=== PATIENT | female | born 1985 | race American Indian/Alaskan Native ===

== ENCOUNTER 2020-01-31 14:19 | Inpatient (IN) | payer OTHER, SELFPAY ==
--- NOTE | 2020-01-31 16:06 | Emergency Department Report ---
HPI - HPI HPI: Room 10 The patient is a 34-year-old female present with a chief complaint of nausea vomiting and weakness. The patient states she went to sleep in her usual state of health last night and this morning at 04: 00 she began "shaking uncontrollably." The patient states that lasted for approximately 1 hour and then resolved but she continued to feel weak dizzy and had nausea and vomiting. The patient states that 07: 30 the shaking return prompted her to come to the hospital. The patient states she now just feels lightheaded and weak. Patient denies dysuria or hematuria. Patient denies diarrhea or cough. Patient denies contact with known Covid positive patients. Patient admits to a fever <DAYNA MUELLER - Last Filed: 01/31/20 20:00> <JAYNE TAFOYA - Last Filed: 01/31/20 23:03> - General Chief Complaint: Nausea/Vomiting/Diarrhea Time Seen by Provider: 01/31/20 15:10 ED Past Medical Hx - Past Medical History Previous Medical History?: Yes Hx Diabetes: Yes Additional medical history: Chronic back pain - Surgical History Past Surgical History?: Yes Additional Surgical History: Bilateral foot surgery - Family History Family history: no significant - Social History Smoking Status: Never Smoker Substance Use Type: None (Denies illicit drug use), Alcohol (Occasional) <DAYNA MUELLER - Last Filed: 01/31/20 20:00> <JAYNE TAFOYA - Last Filed: 01/31/20 23:03> - Medications Home Medications: Home Medications Medication Instructions Recorded Confirmed Last Taken Type Ciprofloxacin HCl [Ciprofloxacin 500 mg PO Q12HR #20 tab 01/31/20 Unknown Rx TAB] Promethazine [Phenergan] 25 mg PO Q6HR PRN #20 tab 01/31/20 Unknown Rx Promethazine [Phenergan] 25 mg [place] Q6HR PRN #5 supp.rect 01/31/20 Unknown Rx ED Review of Systems ROS: Stated complaint: N/V, HEADACHE Other details as noted in HPI Constitutional: fever Eyes: denies: eye pain ENT: denies: throat pain Respiratory: denies: cough Cardiovascular: denies: chest pain Endocrine: no symptoms reported Gastrointestinal: nausea, vomiting. denies: abdominal pain, diarrhea Genitourinary: denies: dysuria, hematuria Musculoskeletal: denies: back pain Neurological: other (Lightheadedness) <DAYNA MUELLER - Last Filed: 01/31/20 20:00> ROS: Stated complaint: N/V, HEADACHE Other details as noted in HPI <JAYNE TAFOYA - Last Filed: 01/31/20 23:03> Physical Exam - Physical Exam Vital Signs: Vital Signs 01/31/20 15:31 Temperature 99.4 F Pulse Rate 133 H Respiratory 11 L Rate Blood Pressure 106/54 O2 Sat by Pulse 97 Oximetry Physical Exam: GENERAL: The patient is well-developed well-nourished female lying on stretcher using cell phone not appearing to be in acute distress. [] HEENT: Normocephalic. Atraumatic. Extraocular motions are intact. Patient has moist mucous membranes. NECK: Supple. No meningitic signs are noted. No nuchal rigidity CHEST/LUNGS: Clear to auscultation. There is no respiratory distress noted. HEART/CARDIOVASCULAR: Regular. There is tachycardia. There is no gallop rub or murmur. ABDOMEN: Abdomen is soft, nontender. Patient has normal bowel sounds. There is no abdominal distention. SKIN: There is no rash. There is no edema. There is no diaphoresis. NEURO: The patient is awake, alert, and oriented. The patient is cooperative. The patient has no focal neurologic deficits. The patient has normal speech. Cranial nerves II through XII grossly intact MUSCULOSKELETAL: There is no evidence of acute injury. <TODD MUELLERKE Emmanuel - Last Filed: 01/31/20 20:00> - Physical Exam Vital Signs: Vital Signs 01/31/20 01/31/20 01/31/20 15:30 15:31 15:45 Temperature 99.4 F Pulse Rate 140 H 133 H 130 H Respiratory 20 11 L 14 Rate Blood Pressure 105/64 106/54 105/71 Blood Pressure [Left] O2 Sat by Pulse 97 97 93 Oximetry 01/31/20 01/31/20 01/31/20 16:16 16:30 16:46 Temperature Pulse Rate 128 H 132 H 124 H Respiratory 19 22 18 Rate Blood Pressure 99/53 99/53 99/53 Blood Pressure [Left] O2 Sat by Pulse 96 96 98 Oximetry 01/31/20 01/31/20 01/31/20 17:00 17:16 17:30 Temperature Pulse Rate 125 H 124 H 118 H Respiratory 17 29 H 20 Rate Blood Pressure 99/53 99/53 94/53 Blood Pressure [Left] O2 Sat by Pulse 98 97 96 Oximetry 01/31/20 01/31/20 01/31/20 17:46 18:00 18:16 Temperature Pulse Rate 120 H 114 H 114 H Respiratory 18 20 20 Rate Blood Pressure 94/53 94/43 94/43 Blood Pressure [Left] O2 Sat by Pulse 97 94 94 Oximetry 01/31/20 01/31/20 01/31/20 18:30 18:46 19:40 Temperature 98.0 F Pulse Rate 114 H 115 H 109 H Respiratory 18 16 16 Rate Blood Pressure 94/43 91/49 Blood Pressure 105/68 [Left] O2 Sat by Pulse 94 97 96 Oximetry 01/31/20 01/31/20 01/31/20 19:46 20:00 20:16 Temperature Pulse Rate 107 H 108 H 106 H Respiratory 17 12 15 Rate Blood Pressure 105/68 103/50 107/50 Blood Pressure [Left] O2 Sat by Pulse 94 95 94 Oximetry 01/31/20 01/31/20 01/31/20 20:30 20:45 21:00 Temperature Pulse Rate 108 H 108 H 108 H Respiratory 18 19 20 Rate Blood Pressure 104/50 107/42 107/53 Blood Pressure [Left] O2 Sat by Pulse 95 95 97 Oximetry 01/31/20 01/31/20 21:38 22:30 Temperature Pulse Rate 155 H Respiratory 27 H Rate Blood Pressure 107/53 107/53 Blood Pressure [Left] O2 Sat by Pulse 99 95 Oximetry <JAYNE TAFOYA - Last Filed: 01/31/20 23:03> ED Course Vital Signs 01/31/20 15:31 Temperature 99.4 F Pulse Rate 133 H Respiratory 11 L Rate Blood Pressure 106/54 O2 Sat by Pulse 97 Oximetry <DAYNA MUELLER - Last Filed: 01/31/20 20:00> Vital Signs 01/31/20 01/31/20 01/31/20 15:30 15:31 15:45 Temperature 99.4 F Pulse Rate 140 H 133 H 130 H Respiratory 20 11 L 14 Rate Blood Pressure 105/64 106/54 105/71 Blood Pressure [Left] O2 Sat by Pulse 97 97 93 Oximetry 01/31/20 01/31/2001/30/20 16:16 16:30 16:46 Temperature Pulse Rate 128 H 132 H 124 H Respiratory 19 22 18 Rate Blood Pressure 99/53 99/53 99/53 Blood Pressure [Left] O2 Sat by Pulse 96 96 98 Oximetry 01/31/20 01/31/20 01/31/20 17:00 17:16 17:30 Temperature Pulse Rate 125 H 124 H 118 H Respiratory 17 29 H 20 Rate Blood Pressure 99/53 99/53 94/53 Blood Pressure [Left] O2 Sat by Pulse 98 97 96 Oximetry 01/31/20 01/31/20 01/31/20 17:46 18:00 18:16 Temperature Pulse Rate 120 H 114 H 114 H Respiratory 18 20 20 Rate Blood Pressure 94/53 94/43 94/43 Blood Pressure [Left] O2 Sat by Pulse 97 94 94 Oximetry 01/31/20 01/31/20 01/31/20 18:30 18:46 19:40 Temperature 98.0 F Pulse Rate 114 H 115 H 109 H Respiratory 18 16 16 Rate Blood Pressure 94/43 91/49 Blood Pressure 105/68 [Left] O2 Sat by Pulse 94 97 96 Oximetry 01/31/20 01/31/20 01/31/20 19:46 20:00 20:16 Temperature Pulse Rate 107 H 108 H 106 H Respiratory 17 12 15 Rate Blood Pressure 105/68 103/50 107/50 Blood Pressure [Left] O2 Sat by Pulse 94 95 94 Oximetry 01/31/20 01/31/20 01/31/20 20:30 20:45 21:00 Temperature Pulse Rate 108 H 108 H 108 H Respiratory 18 19 20 Rate Blood Pressure 104/50 107/42 107/53 Blood Pressure [Left] O2 Sat by Pulse 95 95 97 Oximetry 01/31/20 01/31/20 21:38 22:30 Temperature Pulse Rate 155 H Respiratory 27 H Rate Blood Pressure 107/53 107/53 Blood Pressure [Left] O2 Sat by Pulse 99 95 Oximetry <JAYNE TAFOYA - Last Filed: 01/31/20 23:03> ED Medical Decision Making - Lab Data Result diagrams: 01/31/20 16:20 01/31/20 16:20 <DAYNA MUELLER - Last Filed: 01/31/20 20:00> - Lab Data Result diagrams: 01/31/20 16:20 01/31/20 16:20 - Radiology Data Radiology results: report reviewed CT chest abdomen pelvis: No significant or definite acute findings in the chest abdomen pelvis according to radiology impression. - Medical Decision Making This is a 34-year-old female with history of diabetes mellitus, severe obesity who presents with severe chills, subjective fever nausea vomiting. She has generalized malaise. With persistent tachycardia and hypotension I am concerned for septic shock. Patient did have contaminated urinalysis. She is currently menstruating. However there is nitrites and significant WBCs concerning for possible pyelonephritis. No other significant source of infection. Patient is admitted to the hospital service in fair condition. <JAYNE TAFOYA - Last Filed: 01/31/20 23:03> Critical care attestation.: If time is entered above; I have spent that time in minutes in the direct care of this critically ill patient, excluding procedure time. <DAYNA MUELLER - Last Filed: 01/31/20 20:00> Critical Care Time: Yes Critical care time in (mins) excluding proc time.: 40 Critical care attestation.: If time is entered above; I have spent that time in minutes in the direct care of this critically ill patient, excluding procedure time. 40 minutes of critical care time excluding procedures were used in the care of the patient. I came immediately to the bedside after receiving patient report from my colleague. I reviewed electronic record. Patient required multiple interventions and reassessments. <JAYNE TAFOYA - Last Filed: 01/31/20 23:03> ED Disposition <DAYNA MUELLER - Last Filed: 01/31/20 20:00> Is pt being admited?: Yes Does the pt Need Aspirin: No <JAYNE TAFOYA - Last Filed: 01/31/20 23:03> Clinical Impression: Pyelonephritis, Sepsis Disposition: DC-09 OP ADMIT IP TO THIS HOSP Condition: Fair Instructions: Pyelonephritis, Adult Additional Instructions: Return to the emergency department should you develop worsening symptoms, in ability to tolerate food or liquids, high fever or any other concerns Prescriptions: Ciprofloxacin HCl [Ciprofloxacin TAB] 500 mg PO Q12HR #20 tab Promethazine [Phenergan] 25 mg PO Q6HR PRN #20 tab PRN Reason: Nausea Promethazine [Phenergan] 25 mg [place] Q6HR PRN #5 supp.rect PRN Reason: Vomiting
[2020-01-31] MEDS ORDERED: ONDANSETRON 4 MG/2 ML INJ IV ONE (16:10)
[2020-01-31] MEDS ORDERED: SODIUM CHLORIDE 0.9% 1000 ML 1,000 ML IV ONE ×3 (16:10→18:36)
[2020-01-31 16:38] LABS: Basophils % (Auto) 0.1 % (0.0-1.8); Hematocrit 37.5 % (30.3-42.9); Hemoglobin 11.5 gm/dl (10.1-14.3); Lymphocytes # (Auto) 0.9 K/mm3 (1.2-5.4); Lymphocytes % (Auto) 5.2 % (13.4-35.0); Mean Corpuscular HGB Conc 31 % (30-34); Mean Corpuscular Volume 81 fl (79-97); Monocytes % (Auto) 5.9 % (0.0-7.3); Platelet Count 259 K/mm3 (140-440); Red Blood Count 4.64 M/mm3 (3.65-5.03); Red Cell Distribution Width 15.2 % (13.2-15.2)
[2020-01-31 16:59] LABS: Albumin 3.1 g/dL (3.9-5); Calcium 8.9 mg/dL (8.4-10.2)
[2020-01-31] MEDS ORDERED: levoFLOXacin 500 MG TAB PO ONE (19:34)
[2020-01-31 19:41] LABS: Bilirubin,Urine NEG (Negative); Blood,Urine MOD (Negative); Color,Urine Red (Yellow); Urobilinogen,Urine < 2.0 mg/dL (<2.0)
[2020-01-31 19:53] LABS: RBC,Urine > 182.0 /HPF (0.0-6.0); WBC,Urine > 182.0 /HPF (0.0-6.0)
[2020-01-31] MEDS ORDERED: INSULIN REGULAR, HUMAN 100 UNIT/ML 3ML VIAL IV ONE (20:08)
[2020-01-31] MEDS ORDERED: INSULIN REGULAR, HUMAN 100 UNITS/1 ML ONE (20:30)
[2020-01-31] MEDS ORDERED: VANCOMYCIN/NS 1 GM/250 ML 1 GM/250 ML BAG IV ONE (22:04)
[2020-01-31] MEDS ORDERED: PIPERACIL/TAZOBACTA 4.5/NS 100 4.5 GM/100 ML VIAL IV ONE (22:04)
[2020-01-31] MEDS ORDERED: VANCOMYCIN 2,000 MG in SODIUM CHLORIDE 0.9% 500 ML 500 ML IV ONE (22:15)
--- NOTE | 2020-01-31 22:15 | Cat Scan Report ---
CT abdomen pelvis wo con, CT chest wo con INDICATION / CLINICAL INFORMATION: SIRS chills. TECHNIQUE: All CT scans at this location are performed using CT dose reduction for ALARA by means of automated e xposure control. COMPARISON: None available. FINDINGS: No significant parenchymal abnormality is seen in the lungs. No enlarged mediastinal or hilar lymph n odes are identified. No significant skeletal abnormality is seen. In the abdomen, significant artifact is present due to the patient's size. Grossly, the liver, spleen , kidneys, pancreas, adrenal glands and great vessels are normal. In the pelvis, no free fluid is seen. No enlarged lymph nodes are identified. The bladder is normal. No significant skeletal abnormality is seen. IMPRESSION: 1. Significant artifact due to patient's size. 2. No definite acute finding in the chest, abdomen or pelvis Signer Name: Isaiah Talbot MD FACR Signed: 01/31/2020 10:11 PM Workstation Name: [id number]
[2020-01-31] MEDS ORDERED: SODIUM CHLORIDE 0.9% 1000 ML IV SOLN IV ONE (23:05)
[2020-02-01] MEDS ORDERED: SODIUM CHLORIDE 0.9% 1000 ML 1,000 ML ONE ×3 (02:53→06:01)
[2020-02-01] MEDS ORDERED: SODIUM CHLORIDE 0.9% 1000 ML 1,000 ML IV ONE ×2 (03:05→05:24)
[2020-02-01] MEDS ORDERED: LIDOCAINE PF 100 MG/5 ML (CARDIAC SYRINGE) IV ONE ×4 (04:59→05:15)
[2020-02-01] MEDS ORDERED: NORepinephrine/NS 4 MG-250 ML 4 MG/250 ML BAG IV ONE (05:27)
--- NOTE | 2020-02-01 05:34 | History and Physical Report ---
History of Present Illness Date of examination: 01/31/20 Date of admission: 02/01/20 04:28 Chief complaint: Nausea vomiting and weakness for 1 day History of present illness: 34-year-old female, morbidly obese with history of diabetes comes in for nausea vomiting and diarrhea since yesterday. Patient began shaking uncontrollably. Patient describes them as chills. This happened at 4 AM. She had chills again after 7:30 AM. Patient denies any diarrhea or cough. Some dysuria present. Patient denies contact with coronavirus patients. Patient has slight shortness of breath. Patient is morbidly obese and patient has possible obstructive sleep apnea also. Fever in the triage area. Blood pressure was on the lower side in the 90s over 60s - Past Medical History Previous Medical History?: Yes --Diabetes: Yes Additional medical history: Chronic back pain - Surgical History Past Surgical History?: Yes Additional Surgical History: Bilateral foot surgery - Family History Family history: no significant - Social History Smoking Status: Never Smoker Substance Use Type: None (Denies illicit drug use), Alcohol (Occasional) - Medications Home Medications: Home Medications Medication Instructions Recorded Confirmed Last Taken Type Ciprofloxacin HCl [Ciprofloxacin 500 mg PO Q12HR #20 tab 01/31/20 Unknown Rx TAB] Promethazine [Phenergan] 25 mg PO Q6HR PRN #20 tab 01/31/20 Unknown Rx Promethazine [Phenergan] 25 mg [place] Q6HR PRN #5 supp.rect 01/31/20 Unknown Rx Review of Systems ROS: Stated complaint: N/V, HEADACHE Other details as noted in HPI Constitutional: fever Eyes: denies: eye pain ENT: denies: throat pain Respiratory: denies: cough Cardiovascular: denies: chest pain Endocrine: no symptoms reported Gastrointestinal: nausea, vomiting. denies: abdominal pain, diarrhea Genitourinary: denies: dysuria, hematuria Musculoskeletal: denies: back pain Neurological: other (Lightheadedness) Medications and Allergies Allergies Allergy/AdvReac Type Severity Reaction Status Date / Time No Known Allergies Allergy Verified 01/31/20 22:06 Home Medications Medication Instructions Recorded Confirmed Last Taken Type Ciprofloxacin HCl [Ciprofloxacin 500 mg PO Q12HR #20 tab 01/31/20 Unknown Rx TAB] Promethazine [Phenergan] 25 mg PO Q6HR PRN #20 tab 01/31/20 Unknown Rx Promethazine [Phenergan] 25 mg [place] Q6HR PRN #5 supp.rect 01/31/20 Unknown Rx Active Meds: Active Medications Norepinephrine (Levophed Drip 4 Mg/Ns 250 Ml) 4 mg in 250 mls @ 7.5 mls/hr IV TITR DAYANA; Protocol Sodium Chloride (Nacl 0.9% 1000 Ml) 1,000 mls @ 999 mls/hr IV BOLUS ONE Stop: 02/01/20 06:24 Exam - Physical Exam Narrative exam: Morbidly obese patient weighing about 356 pounds - Constitutional Vitals: Temp Pulse Resp BP Pulse Ox 98.0 F 115 H 17 98/41 97 01/31/20 19:40 02/01/20 05:15 02/01/20 05:15 02/01/20 05:15 02/01/20 05:15 General appearance: Present: mild distress - EENT Eyes: Present: PERRL ENT: hearing intact, clear oral mucosa - Neck Neck: Present: supple, normal ROM - Respiratory Respiratory effort: normal Respiratory: bilateral: CTA - Cardiovascular Heart rate: 98 Rhythm: regular Heart Sounds: Present: S1 & S2. Absent: rub, click - Extremities Extremities: no ischemia, pulses intact, pulses symmetrical, No edema Peripheral Pulses: within normal limits - Abdominal General gastrointestinal: Present: soft, non-tender, non-distended, normal bowel sounds Female genitourinary: Present: normal - Integumentary Integumentary: Present: clear, warm, dry - Musculoskeletal Musculoskeletal: gait normal, strength equal bilaterally - Psychiatric Psychiatric: appropriate mood/affect, intact judgment & insight, cooperative - Neurologic Neurologic: CNII-XII intact, moves all extremities HEART Score - HEART Score History: Slightly suspicious Age: < 45 Risk factors: 1-2 risk factors Troponin: < normal limit Results - Labs CBC & Chem 7: 02/01/20 05:44 01/31/20 16:20 Labs: Laboratory Last Values WBC 16.7 K/mm3 (4.5-11.0) H 01/31/20 16:20 RBC 4.64 M/mm3 (3.65-5.03) 01/31/20 16:20 Hgb 11.5 gm/dl (10.1-14.3) 01/31/20 16:20 Hct 37.5 % (30.3-42.9) 01/31/20 16:20 MCV 81 fl (79-97) 01/31/20 16:20 MCH 25 pg (28-32) L 01/31/20 16:20 MCHC 31 % (30-34) 01/31/20 16:20 RDW 15.2 % (13.2-15.2) 01/31/20 16:20 Plt Count 259 K/mm3 (140-440) 01/31/20 16:20 Lymph % (Auto) 5.2 % (13.4-35.0) L 01/31/20 16:20 [place] % (Auto) 5.9 % (0.0-7.3) 01/31/20 16:20 Eos % (Auto) 0.0 % (0.0-4.3) 01/31/20 16:20 Baso % (Auto) 0.1 % (0.0-1.8) 01/31/20 16:20 Lymph # (Auto) 0.9 K/mm3 (1.2-5.4) L 01/31/20 16:20 [place] # (Auto) 1.0 K/mm3 (0.0-0.8) H 01/31/20 16:20 Eos # (Auto) 0.0 K/mm3 (0.0-0.4) 01/31/20 16:20 Baso # (Auto) 0.0 K/mm3 (0.0-0.1) 01/31/20 16:20 Seg Neutrophils % 88.8 % (40.0-70.0) H 01/31/20 16:20 Seg Neutrophils # 14.8 K/mm3 (1.8-7.7) H 01/31/20 16:20 VBG pH 7.376 (7.320-7.420) 01/31/20 17:48 Sodium 131 mmol/L (137-145) L 01/31/20 16:20 Potassium 4.0 mmol/L (3.6-5.0) 01/31/20 16:20 Chloride 100.3 mmol/L (98-107) 01/31/20 16:20 Carbon Dioxide 18 mmol/L (22-30) L 01/31/20 16:20 Anion Gap 17 mmol/L 01/31/20 16:20 BUN 15 mg/dL (7-17) 01/31/20 16:20 Creatinine 1.1 mg/dL (0.6-1.2) 01/31/20 16:20 Estimated GFR 56 ml/min 01/31/20 16:20 BUN/Creatinine Ratio 14 % 01/31/20 16:20 Glucose 408 mg/dL (65-100) H 01/31/20 16:20 POC Glucose 269 mg/dL (70-105) H 01/31/20 22:44 Lactic Acid 2.20 mmol/L (0.7-2.0) H* 02/01/20 02:16 Calcium 8.9 mg/dL (8.4-10.2) 01/31/20 16:20 Total Bilirubin 0.60 mg/dL (0.1-1.2) 01/31/20 16:20 AST 12 units/L (5-40) 01/31/20 16:20 ALT 19 units/L (7-56) 01/31/20 16:20 Alkaline Phosphatase 88 units/L (35-129) 01/31/20 16:20 Total Protein 7.5 g/dL (6.3-8.2) 01/31/20 16:20 Albumin 3.1 g/dL (3.9-5) L 01/31/20 16:20 Albumin/Globulin Ratio 0.7 % 01/31/20 16:20 HCG, Qual Negative (Negative) 01/31/20 16:20 Urine Color Red (Yellow) 01/31/20 19:00 Urine Turbidity Cloudy (Clear) 01/31/20 19:00 Urine pH 6.0 (5.0-7.0) 01/31/20 19:00 Ur Specific [place] 1.027 (1.003-1.030) 01/31/20 19:00 Urine Protein 100 mg/dl mg/dL (Negative) 01/31/20 19:00 Urine Glucose (UA) >=500 mg/dL (Negative) 01/31/20 19:00 Urine Ketones Tr mg/dL (Negative) 01/31/20 19:00 Urine Blood Mod (Negative) 01/31/20 19:00 Urine Nitrite Pos (Negative) 01/31/20 19:00 Urine Bilirubin Neg (Negative) 01/31/20 19:00 Urine Urobilinogen < 2.0 mg/dL (<2.0) 01/31/20 19:00 Ur Leukocyte Esterase Neg (Negative) 01/31/20 19:00 Urine WBC (Auto) > 182.0 /HPF (0.0-6.0) H 01/31/20 19:00 Urine RBC (Auto) > 182.0 /HPF (0.0-6.0) 01/31/20 19:00 U Epithel Cells (Auto) 6.0 /HPF (0-13.0) 01/31/20 19:00 Short CBC 01/31/20 02/01/20 Range/Units 16:20 05:44 WBC 16.7 H 20.2 H (4.5-11.0) K/mm3 Hgb 11.5 10.0 L (10.1-14.3) gm/dl Hct 37.5 31.9 (30.3-42.9) % Plt Count 259 207 (140-440) K/mm3 BMP 01/31/20 16:20 Sodium 131 L Potassium 4.0 Chloride 100.3 Carbon Dioxide 18 L BUN 15 Creatinine 1.1 Glucose 408 H Calcium 8.9 Liver Function 01/31/20 Range/Units 16:20 Total Bilirubin 0.60 (0.1-1.2) mg/dL AST 12 (5-40) units/L ALT 19 (7-56) units/L Alkaline Phosphatase 88 (35-129) units/L Albumin 3.1 L (3.9-5) g/dL Urine 01/31/20 Range/Units 19:00 Urine Color Red (Yellow) Urine pH 6.0 (5.0-7.0) Ur Specific [place] 1.027 (1.003-1.030) Urine Protein 100 mg/dl (Negative) mg/dL Urine Glucose (UA) >=500 (Negative) mg/dL Microbiology: Microbiology 01/31/20 16:29 Peripheral/Venous Blood Culture - Preliminary Culture in Progress 01/31/20 16:20 Peripheral/Venous Blood Culture - Preliminary Culture in Progress - Imaging and Cardiology Imaging and Cardiology: Abdominal CT Significant artifact due to patient size No definite acute finding in the chest abdomen or pelvis Arce/IV: IV Catheter Type [Right INT / Saline Lock Forearm] IV Catheter Type [Left Hand] INT / Saline Lock Assessment and Plan Assessment and plan: The high probability OF a clinically significant sudden or life-threatening deterioration of the cardiorespiratory system and endocrine system required my full and direct attention, intervention and postoperative management. The aggregate critical l care time was 40 minutes. The time is in addition to time spent performing reported procedures but includes the followin: Data review and interpretation 2: Patient assessment and monitoring of vital signs 3: Documentation 4:: Medication orders and management Advance Directives: Yes (Full code) VTE prophylaxis?: Chemical Plan of care discussed with patient/family: Yes - Patient Problems (1) Septic shock Current Visit: Yes Status: Acute Plan to address problem: Patient is septic shock Elevated lactic acid level Hypotensive with blood pressure of 8860 Patient started on IV cefepime and IV vancomycin empirically. Patient has 182 white blood cells in the urine Urine cultures and blood cultures are pending (2) Pyelonephritis Current Visit: Yes Status: Acute Plan to address problem: Clinical picture consistent with acute pyelonephritis Patient started on IV cefepime and vancomycin (3) Hypotension Current Visit: Yes Status: Acute Plan to address problem: Hypotension secondary to septic shock Patient on IV normal saline and IV norepinephrine to be titrated to keep systolic blood pressure above 100 (4) T2DM (type 2 diabetes mellitus) Current Visit: Yes Status: Chronic Qualifiers: Diabetes mellitus meterman insulin use: unspecified meterman insulin use status Plan to address problem: Patient initiated on insulin every 4 hours with moderate dose sliding scale protocol Check hemoglobin A1c (5) Hyponatremia Current Visit: Yes Status: Acute Plan to address problem: Mild should correct with IV normal saline (6) Malnutrition Current Visit: Yes Status: Acute Qualifiers: Malnutrition type: unspecified type Qualified Code(s): E46 - Unspecified protein-calorie malnutrition Plan to address problem: Mild to moderate Dietary supplements requested (7) DVT prophylaxis Current Visit: Yes Status: Acute
[2020-02-01] MEDS ORDERED: HYDROmorphone 1 MG/1 ML INJ IV PRN (05:35)
[2020-02-01] MEDS ORDERED: CEFEPIME/NS 2 GM/100 ML 2 GM/100 ML BAG IV SCH (06:00)
[2020-02-01] MEDS ORDERED: INSULIN LISPRO 100 UNIT/ML VIAL 3 mL SUB-Q ONE ×2 (06:00→06:08)
[2020-02-01] MEDS ORDERED: VANCOMYCIN PHARMACY TO DOSE IV SCH (06:00)
[2020-02-01] MEDS ORDERED: NORepinephrine/NS 4 MG-250 ML 4 MG/250 ML BAG IV SCH (06:00)
[2020-02-01] MEDS ORDERED: CEFEPIME/NS 2 GM/100 ML 2 GM/100 ML BAG IV ONE (06:01)
[2020-02-01] MEDS: INSULIN LISPRO 100 UNIT/ML VIAL 3 mL SUB-Q SCH ×5 (06:11→21:49)
[2020-02-01] MEDS: SODIUM CHLORIDE 0.9% 1000 ML 1,000 ML IV SCH ×2 (06:20→18:36)
[2020-02-01 06:24] LABS: Hematocrit 31.9 % (30.3-42.9); Mean Corpuscular HGB Conc 31 % (30-34); Mean Corpuscular Volume 81 fl (79-97); Platelet Count 207 K/mm3 (140-440); Red Blood Count 3.93 M/mm3 (3.65-5.03); Red Cell Distribution Width 14.8 % (13.2-15.2)
[2020-02-01 06:52] LABS: Albumin 2.4 g/dL (3.9-5); Calcium 6.9 mg/dL (8.4-10.2)
[2020-02-01 07:46] LABS: Anisocytosis 1+; Band Neutrophils # (Manual) 0.8 K/mm3; Basophils % (Manual) 0 % (0.0-1.8); Eosinophils % (Manual) 0 % (0.0-4.3); Nucleated Red Blood Cells 0.5 % (0.0-0.9); Platelet Estimate Consistent w Auto; Total Cells Counted 200
[2020-02-01] MEDS ORDERED: LACTATED RINGERS 1,000 ML IV ONE ×2 (08:29)
--- NOTE | 2020-02-01 08:36 | Consultation ---
History of Present Illness - Reason for Consult Consult date: 02/01/20 Sepsis with shock from urinary source Requesting physician: BELINDA LYONS - History of Present Illness 34 y/o, morbidly obese female admitted with fever and shaking chills that started early yesterday morning. Was mildly hypotensive in the ED. Despite fluid resuscitation, remained hypotensive and required vasopressor therapy. Currently on Levophed at 2. Per patient does not use tampons. No diffuse rashes and no sick contacts. UA was dirty and gram stain has GNR but not speciated. sTarted on Vanc and Cefepime. ICU consulted secondary to hypotension. Patients blood sugar was elevated on admission as well. She also had a metabolic acidosis with lactic acid present on blood work which seems to be improving. Medications and Allergies Allergies Allergy/AdvReac Type Severity Reaction Status Date / Time No Known Allergies Allergy Verified 01/31/20 22:06 Home Medications Medication Instructions Recorded Confirmed Last Taken Type Ciprofloxacin HCl [Ciprofloxacin 500 mg PO Q12HR #20 tab 01/31/20 Unknown Rx TAB] Promethazine [Phenergan] 25 mg PO Q6HR PRN #20 tab 01/31/20 Unknown Rx Promethazine [Phenergan] 25 mg OR Q6HR PRN #5 supp.rect 01/31/20 Unknown Rx Naproxen [EC-Naproxen] 500 mg PO BID PRN 02/01/20 02/01/20 Unknown History glyBURIDE [Glyburide] 7.5 mg PO BID 02/01/20 02/01/20 01/31/20 History Active Meds: Active Medications Acetaminophen (Tylenol) 650 mg PO Q4H PRN PRN Reason: Pain MILD(1-3)/Fever >100.5/LOVE Famotidine (Pepcid) 20 mg IV BID [facility] Heparin Sodium (Porcine) (Heparin) 5,000 unit SUB-Q Q12HR [facility] Hydromorphone HCl (Dilaudid) 0.25 mg IV Q3H PRN PRN Reason: Pain, Moderate (4-6) Norepinephrine (Levophed Drip 4 Mg/Ns 250 Ml) 4 mg in 250 mls @ 7.5 mls/hr IV TITR [facility]; Protocol Last Titration: 02/01/20 06:40 Dose: 6 mcg/min, 22.5 mls/hr Documented by: Sodium Chloride (Nacl 0.9% 1000 Ml) 1,000 mls @ 100 mls/hr IV DIRECT [facility] Last Admin: 02/01/20 06:20 Dose: 100 mls/hr Documented by: Cefepime HCl (Cefepime/Ns 2 Gm/100 Ml) 2 gm in 100 mls @ 200 mls/hr IV Q8HR [facility]; Protocol Last Admin: 02/01/20 06:11 Dose: 200 mls/hr Documented by: Vancomycin HCl 2,000 mg/ (Sodium Chloride) 540 mls @ 250 mls/hr IV Q12H [facility] Lactated Ringer's (Lactated Ringers) 1,000 mls @ 999 mls/hr IV BOLUS ONE Stop: 02/01/20 09:29 Lactated Ringer's (Lactated Ringers) 1,000 mls @ 999 mls/hr IV BOLUS ONE Stop: 02/01/20 09:29 Insulin Human Lispro (Humalog) 0 unit SUB-Q Q4HR [facility]; Protocol Last Admin: 02/01/20 06:11 Dose: 6 unit Documented by: Ondansetron HCl (Zofran) 4 mg IV Q8H PRN PRN Reason: Nausea And Vomiting Oxycodone/Acetaminophen (Percocet 5/325) 1 tab PO Q6H PRN PRN Reason: Pain, Moderate (4-6) Sodium Chloride (Sodium Chloride Flush Syringe 10 Ml) 10 ml IV BID [facility] Sodium Chloride (Sodium Chloride Flush Syringe 10 Ml) 10 ml IV PRN PRN PRN Reason: LINE FLUSH Exam - Constitutional Vitals: Temp Pulse Resp BP Pulse Ox 98.1 F 113 H 17 132/76 98 01/31/20 23:00 02/01/20 07:30 02/01/20 07:30 02/01/20 07:30 02/01/20 07:30 General appearance: Present: no acute distress, well-nourished, obese - EENT Eyes: Present: PERRL, EOM intact ENT: hearing intact, clear oral mucosa, dentition normal - Neck Neck: Present: supple, normal ROM - Respiratory Respiratory effort: normal Respiratory: bilateral: CTA - Cardiovascular Rhythm: regular (sinus tach) Results - Labs CBC & Chem 7: 02/02/20 07:01 02/02/20 07:01 Labs: Abnormal lab results 01/31/20 01/31/20 01/31/20 Range/Units 16:20 16:20 19:00 WBC 16.7 H (4.5-11.0) K/mm3 Hgb (10.1-14.3) gm/dl MCH 25 L (28-32) pg Lymph % (Auto) 5.2 L (13.4-35.0) % Lymph # (Auto) 0.9 L (1.2-5.4) K/mm3 [place] # (Auto) 1.0 H (0.0-0.8) K/mm3 Seg Neutrophils % 88.8 H (40.0-70.0) % Seg Neuts % (Manual) (40.0-70.0) % Lymphocytes % (Manual) (13.4-35.0) % Seg Neutrophils # 14.8 H (1.8-7.7) K/mm3 Seg Neutrophils # Man (1.8-7.7) K/mm3 Lymphocytes # (Manual) (1.2-5.4) K/mm3 Sodium 131 L (137-145) mmol/L Chloride (98-107) mmol/L Carbon Dioxide 18 L (22-30) mmol/L Creatinine (0.6-1.2) mg/dL Glucose 408 H (65-100) mg/dL POC Glucose (70-105) mg/dL Hemoglobin A1c (4-6) % Lactic Acid (0.7-2.0) mmol/L Calcium (8.4-10.2) mg/dL Total Protein (6.3-8.2) g/dL Albumin 3.1 L (3.9-5) g/dL Urine WBC (Auto) > 182.0 H (0.0-6.0) /HPF 01/31/20 01/31/20 01/31/20 Range/Units 20:24 22:44 23:33 WBC (4.5-11.0) K/mm3 Hgb (10.1-14.3) gm/dl MCH (28-32) pg Lymph % (Auto) (13.4-35.0) % Lymph # (Auto) (1.2-5.4) K/mm3 [place] # (Auto) (0.0-0.8) K/mm3 Seg Neutrophils % (40.0-70.0) % Seg Neuts % (Manual) (40.0-70.0) % Lymphocytes % (Manual) (13.4-35.0) % Seg Neutrophils # (1.8-7.7) K/mm3 Seg Neutrophils # Man (1.8-7.7) K/mm3 Lymphocytes # (Manual) (1.2-5.4) K/mm3 Sodium (137-145) mmol/L Chloride (98-107) mmol/L Carbon Dioxide (22-30) mmol/L Creatinine (0.6-1.2) mg/dL Glucose (65-100) mg/dL POC Glucose 429 H 269 H (70-105) mg/dL Hemoglobin A1c (4-6) % Lactic Acid 3.50 H* (0.7-2.0) mmol/L Calcium (8.4-10.2) mg/dL Total Protein (6.3-8.2) g/dL Albumin (3.9-5) g/dL Urine WBC (Auto) (0.0-6.0) /HPF 02/01/20 02/01/20 02/01/20 Range/Units 02:16 05:44 05:44 WBC 20.2 H (4.5-11.0) K/mm3 Hgb 10.0 L (10.1-14.3) gm/dl MCH 25 L (28-32) pg Lymph % (Auto) (13.4-35.0) % Lymph # (Auto) (1.2-5.4) K/mm3 [place] # (Auto) (0.0-0.8) K/mm3 Seg Neutrophils % (40.0-70.0) % Seg Neuts % (Manual) 93.5 H (40.0-70.0) % Lymphocytes % (Manual) 0.5 L (13.4-35.0) % Seg Neutrophils # (1.8-7.7) K/mm3 Seg Neutrophils # Man 18.9 H (1.8-7.7) K/mm3 Lymphocytes # (Manual) 0.1 L (1.2-5.4) K/mm3 Sodium (137-145) mmol/L Chloride 109.9 H (98-107) mmol/L Carbon Dioxide 16 L (22-30) mmol/L Creatinine 1.4 H (0.6-1.2) mg/dL Glucose 303 H (65-100) mg/dL POC Glucose (70-105) mg/dL Hemoglobin A1c (4-6) % Lactic Acid 2.20 H* (0.7-2.0) mmol/L Calcium 6.9 L D (8.4-10.2) mg/dL Total Protein 6.0 L (6.3-8.2) g/dL Albumin 2.4 L (3.9-5) g/dL Urine WBC (Auto) (0.0-6.0) /HPF 02/01/20 02/01/20 Range/Units 05:44 06:11 WBC (4.5-11.0) K/mm3 Hgb (10.1-14.3) gm/dl MCH (28-32) pg Lymph % (Auto) (13.4-35.0) % Lymph # (Auto) (1.2-5.4) K/mm3 [place] # (Auto) (0.0-0.8) K/mm3 Seg Neutrophils % (40.0-70.0) % Seg Neuts % (Manual) (40.0-70.0) % Lymphocytes % (Manual) (13.4-35.0) % Seg Neutrophils # (1.8-7.7) K/mm3 Seg Neutrophils # Man (1.8-7.7) K/mm3 Lymphocytes # (Manual) (1.2-5.4) K/mm3 Sodium (137-145) mmol/L Chloride (98-107) mmol/L Carbon Dioxide (22-30) mmol/L Creatinine (0.6-1.2) mg/dL Glucose (65-100) mg/dL POC Glucose 317 H (70-105) mg/dL Hemoglobin A1c 12.5 H (4-6) % Lactic Acid (0.7-2.0) mmol/L Calcium (8.4-10.2) mg/dL Total Protein (6.3-8.2) g/dL Albumin (3.9-5) g/dL Urine WBC (Auto) (0.0-6.0) /HPF - Imaging and Cardiology Chest x-ray: image reviewed CT scan - chest: image reviewed Assessment and Plan 34 y/o morbidly obese female admitted with sepsis with shock, thought secondary to urinary source with newly diagnosed diabetes and A1c of 13 1. Needs more volume, ordered 2 more liter boluses of lactated ringers. This should get her off of the levophed 2. Suggest CC diet and nutrition consult 3. Agree with broad speck abx therapy, hopefully can taper in the next 24-48 hours. Follow up urine and blood cultures 4. Patient only placed on SSI insulin therapy. Suggest starting weight based therapy as she will require insulin at discharge given her A1C and obesity. Most likely this is type 2 diabetes. If her renal functions recovers, could consider starting her on metformin but most likely she will need insulin therap y. 5. Weight loss 6. Needs fasting lipid panel at some point to rule out cholesterol issues 7. Agree with DVT and GI prophylaxis CCT 31 minutes.
[2020-02-01] MEDS ORDERED: LACTATED RINGERS 1,000 ML ONE (08:46)
[2020-02-01] MEDS ORDERED: oxyCODONE /ACETAMINOPHEN 5-325MG TAB ONE (09:01)
[2020-02-01] MEDS: oxyCODONE /ACETAMINOPHEN 5-325MG TAB PO PRN (09:04)
[2020-02-01] MEDS ORDERED: ONDANSETRON 4 MG/2 ML INJ ONE (09:07)
[2020-02-01] MEDS: ONDANSETRON 4 MG/2 ML INJ IV PRN ×2 (09:11→21:54)
[2020-02-01] MEDS: FAMOTIDINE 20 MG/2 ML INJ IV SCH ×2 (10:29→21:49)
[2020-02-01] MEDS: HEPARIN 5,000 UNIT/1 ML VIAL SUB-Q SCH ×2 (10:29→21:49)
--- NOTE | 2020-02-01 10:35 | Consultation ---
History of Present Illness - Reason for Consult Consult date: 02/01/20 Septic Shock Requesting physician: BELINDA LYONS - History of Present Illness The patient is a 34-year-old female admitted to the hospital with nausea, vomiting and diarrhea of 1 day duration. She also had some chills. Upon presentation in the emergency room, she was noted to be hypotensive with a low- grade fever. Concerns for sepsis given leukocytosis, lactic acidosis, uncontrolled hyperglycemia. UA showed significant pyuria. Infectious diseases was consulted for septic shock. CT chest, abdomen and pelvis did not reveal any significant infectious source. She has been getting empiric antibiotics. Pressors were weaned off. Denies urinary burning. Reports having fever at home. Review of Systems: per HPI Medications and Allergies Allergies Allergy/AdvReac Type Severity Reaction Status Date / Time No Known Allergies Allergy Verified 01/31/20 22:06 Home Medications Medication Instructions Recorded Confirmed Last Taken Type Ciprofloxacin HCl [Ciprofloxacin 500 mg PO Q12HR #20 tab 01/31/20 Unknown Rx TAB] Promethazine [Phenergan] 25 mg PO Q6HR PRN #20 tab 01/31/20 Unknown Rx Promethazine [Phenergan] 25 mg ME Q6HR PRN #5 supp.rect 01/31/20 Unknown Rx Active Meds: Active Medications Acetaminophen (Tylenol) 650 mg PO Q4H PRN PRN Reason: Pain MILD(1-3)/Fever >100.5/LOVE Famotidine (Pepcid) 20 mg IV BID [facility] Last Admin: 02/01/20 10:29 Dose: 20 mg Documented by: Heparin Sodium (Porcine) (Heparin) 5,000 unit SUB-Q Q12HR [facility] Last Admin: 02/01/20 10:29 Dose: 5,000 unit Documented by: Hydromorphone HCl (Dilaudid) 0.25 mg IV Q3H PRN PRN Reason: Pain, Moderate (4-6) Norepinephrine (Levophed Drip 4 Mg/Ns 250 Ml) 4 mg in 250 mls @ 7.5 mls/hr IV TITR [facility]; Protocol Last Titration: 02/01/20 09:13 Dose: 0 mcg/min, 0 mls/hr Documented by: Sodium Chloride (Nacl 0.9% 1000 Ml) 1,000 mls @ 100 mls/hr IV DIRECT [facility] Last Admin: 02/01/20 06:20 Dose: 100 mls/hr Documented by: Cefepime HCl (Cefepime/Ns 2 Gm/100 Ml) 2 gm in 100 mls @ 200 mls/hr IV Q8HR [facility]; Protocol Last Admin: 02/01/20 06:11 Dose: 200 mls/hr Documented by: Vancomycin HCl 2,000 mg/ (Sodium Chloride) 540 mls @ 250 mls/hr IV Q12H [facility] Insulin Human Lispro (Humalog) 0 unit SUB-Q Q4HR [facility]; Protocol Last Admin: 02/01/20 06:11 Dose: 6 unit Documented by: Ondansetron HCl (Zofran) 4 mg IV Q8H PRN PRN Reason: Nausea And Vomiting Last Admin: 02/01/20 09:11 Dose: 4 mg Documented by: Oxycodone/Acetaminophen (Percocet 5/325) 1 tab PO Q6H PRN PRN Reason: Pain, Moderate (4-6) Last Admin: 02/01/20 09:04 Dose: 1 tab Documented by: Sodium Chloride (Sodium Chloride Flush Syringe 10 Ml) 10 ml IV BID [facility] Last Admin: 02/01/20 10:31 Dose: 10 ml Documented by: Sodium Chloride (Sodium Chloride Flush Syringe 10 Ml) 10 ml IV PRN PRN PRN Reason: LINE FLUSH Physical Examination - Physical Exam Narrative exam: Physical Exam: Constitutional: Alert, cooperative. No acute distress. Morbidly obese Head, Ears, Nose: Normocephalic, atraumatic. External ears, nose normal Eyes: Conjunctivae/corneas clear. No icterus. No ptosis. Neck: Supple, no meningeal signs Cardiovascular: S1, S2 normal. Respiratory: Good air entry, clear to auscultation bilaterally GI: Soft, non-tender; bowel sounds normal. No peritoneal signs Musculoskeletal: No pedal edema, no cyanosis. Skin: No rash or abscess Hem/Lymphatic: No palpable cervical or supraclavicular nodes. No lymphangitis Psych: Mood ok. Affect normal Neurological: Awake, alert, oriented. No gross abnormality - Constitutional Vitals: Vital Signs Temp Pulse Resp BP Pulse Ox 98.6 F 142 H 16 126/99 96 02/01/20 09:12 02/01/20 09:00 02/01/20 09:00 02/01/20 09:00 02/01/20 09:00 Temperature -Last 24 Hours Temperature 98.6 F Temperature 98.1 F Temperature 98.0 F Temperature 99.4 F Results - Labs CBC & Chem 7: 02/01/20 05:44 02/01/20 05:44 Labs: Abnormal lab results 01/31/20 01/31/20 01/31/20 Range/Units 16:20 16:20 19:00 WBC 16.7 H (4.5-11.0) K/mm3 Hgb (10.1-14.3) gm/dl MCH 25 L (28-32) pg Lymph % (Auto) 5.2 L (13.4-35.0) % Lymph # (Auto) 0.9 L (1.2-5.4) K/mm3 [place] # (Auto) 1.0 H (0.0-0.8) K/mm3 Seg Neutrophils % 88.8 H (40.0-70.0) % Seg Neuts % (Manual) (40.0-70.0) % Lymphocytes % (Manual) (13.4-35.0) % Seg Neutrophils # 14.8 H (1.8-7.7) K/mm3 Seg Neutrophils # Man (1.8-7.7) K/mm3 Lymphocytes # (Manual) (1.2-5.4) K/mm3 Sodium 131 L (137-145) mmol/L Chloride (98-107) mmol/L Carbon Dioxide 18 L (22-30) mmol/L Creatinine (0.6-1.2) mg/dL Glucose 408 H (65-100) mg/dL POC Glucose (70-105) mg/dL Hemoglobin A1c (4-6) % Lactic Acid (0.7-2.0) mmol/L Calcium (8.4-10.2) mg/dL Total Protein (6.3-8.2) g/dL Albumin 3.1 L (3.9-5) g/dL Urine WBC (Auto) > 182.0 H (0.0-6.0) /HPF 01/31/20 01/31/20 01/31/20 Range/Units 20:24 22:44 23:33 WBC (4.5-11.0) K/mm3 Hgb (10.1-14.3) gm/dl MCH (28-32) pg Lymph % (Auto) (13.4-35.0) % Lymph # (Auto) (1.2-5.4) K/mm3 [place] # (Auto) (0.0-0.8) K/mm3 Seg Neutrophils % (40.0-70.0) % Seg Neuts % (Manual) (40.0-70.0) % Lymphocytes % (Manual) (13.4-35.0) % Seg Neutrophils # (1.8-7.7) K/mm3 Seg Neutrophils # Man (1.8-7.7) K/mm3 Lymphocytes # (Manual) (1.2-5.4) K/mm3 Sodium (137-145) mmol/L Chloride (98-107) mmol/L Carbon Dioxide (22-30) mmol/L Creatinine (0.6-1.2) mg/dL Glucose (65-100) mg/dL POC Glucose 429 H 269 H (70-105) mg/dL Hemoglobin A1c (4-6) % Lactic Acid 3.50 H* (0.7-2.0) mmol/L Calcium (8.4-10.2) mg/dL Total Protein (6.3-8.2) g/dL Albumin (3.9-5) g/dL Urine WBC (Auto) (0.0-6.0) /HPF 02/01/20 02/01/20 02/01/20 Range/Units 02:16 05:44 05:44 WBC 20.2 H (4.5-11.0) K/mm3 Hgb 10.0 L (10.1-14.3) gm/dl MCH 25 L (28-32) pg Lymph % (Auto) (13.4-35.0) % Lymph # (Auto) (1.2-5.4) K/mm3 [place] # (Auto) (0.0-0.8) K/mm3 Seg Neutrophils % (40.0-70.0) % Seg Neuts % (Manual) 93.5 H (40.0-70.0) % Lymphocytes % (Manual) 0.5 L (13.4-35.0) % Seg Neutrophils # (1.8-7.7) K/mm3 Seg Neutrophils # Man 18.9 H (1.8-7.7) K/mm3 Lymphocytes # (Manual) 0.1 L (1.2-5.4) K/mm3 Sodium (137-145) mmol/L Chloride 109.9 H (98-107) mmol/L Carbon Dioxide 16 L (22-30) mmol/L Creatinine 1.4 H (0.6-1.2) mg/dL Glucose 303 H (65-100) mg/dL POC Glucose (70-105) mg/dL Hemoglobin A1c (4-6) % Lactic Acid 2.20 H* (0.7-2.0) mmol/L Calcium 6.9 L D (8.4-10.2) mg/dL Total Protein 6.0 L (6.3-8.2) g/dL Albumin 2.4 L (3.9-5) g/dL Urine WBC (Auto) (0.0-6.0) /HPF 02/01/20 02/01/20 Range/Units 05:44 06:11 WBC (4.5-11.0) K/mm3 Hgb (10.1-14.3) gm/dl MCH (28-32) pg Lymph % (Auto) (13.4-35.0) % Lymph # (Auto) (1.2-5.4) K/mm3 [place] # (Auto) (0.0-0.8) K/mm3 Seg Neutrophils % (40.0-70.0) % Seg Neuts % (Manual) (40.0-70.0) % Lymphocytes % (Manual) (13.4-35.0) % Seg Neutrophils # (1.8-7.7) K/mm3 Seg Neutrophils # Man (1.8-7.7) K/mm3 Lymphocytes # (Manual) (1.2-5.4) K/mm3 Sodium (137-145) mmol/L Chloride (98-107) mmol/L Carbon Dioxide (22-30) mmol/L Creatinine (0.6-1.2) mg/dL Glucose (65-100) mg/dL POC Glucose 317 H (70-105) mg/dL Hemoglobin A1c 12.5 H (4-6) % Lactic Acid (0.7-2.0) mmol/L Calcium (8.4-10.2) mg/dL Total Protein (6.3-8.2) g/dL Albumin (3.9-5) g/dL Urine WBC (Auto) (0.0-6.0) /HPF - Imaging and Cardiology CT scan - chest: report reviewed, image reviewed (no pneumonia) Assessment and Plan Cultures: 01/31/2020 blood culture: In process Urine culture: GNR A/P: 34/F with DM, obesity admitted with: #Septic shock, source likely urinary tract infection: UA with significant pyuria. CT chest, abdomen pelvis w/o contrast without infectious source. #Uncontrolled diabetes mellitus #Morbid obesity #MODESTA: renally dose abx. Recs: Continue IV cefepime 2 g every 12 hours Vancomycin discontinued f/u blood and urine cultures Remove femoral line when feasible. Clinically improving and remains off pressors. Darling Fuentes MD, FACP [facility] ([facility] O: [phone] F: [phone]
[2020-02-01] MEDS ORDERED: VANCOMYCIN 2,000 MG in SODIUM CHLORIDE 0.9% 500 ML 500 ML IV SCH (12:00)
--- NOTE | 2020-02-01 13:35 | Event Note ---
Date: 02/01/20 34-year-old female, morbidly obese with history of diabetes comes in for nausea vomiting and diarrhea since yesterday. Patient began shaking uncontrollably. Patient describes them as chills. This happened at 4 AM. She had chills again after 7:30 AM. Patient denies any diarrhea or cough. Some dysuria present. Patient denies contact with coronavirus patients. Patient has slight shortness of breath. Patient is morbidly obese and patient has possible obstructive sleep apnea also. Fever in the triage area. Blood pressure has improved but remains tachy was not able to wean off pressor
[2020-02-01] MEDS: CEFEPIME/NS 2 GM/100 ML 2 GM/100 ML BAG IV SCH (21:44)
[2020-02-02] MEDS: INSULIN LISPRO 100 UNIT/ML VIAL 3 mL SUB-Q SCH ×5 (04:10→21:40)
[2020-02-02] MEDS: SODIUM CHLORIDE 0.9% 1000 ML 1,000 ML IV SCH (04:12)
[2020-02-02] MEDS: oxyCODONE /ACETAMINOPHEN 5-325MG TAB PO PRN (07:50)
[2020-02-02 08:14] LABS: Basophils % (Auto) 0.3 % (0.0-1.8); Eosinophils # (Auto) 0.3 K/mm3 (0.0-0.4); Eosinophils % (Auto) 1.7 % (0.0-4.3); Hematocrit 30.6 % (30.3-42.9); Hemoglobin 9.7 gm/dl (10.1-14.3); Lymphocytes # (Auto) 0.9 K/mm3 (1.2-5.4); Lymphocytes % (Auto) 5.9 % (13.4-35.0); Mean Corpuscular HGB Conc 32 % (30-34); Mean Corpuscular Volume 79 fl (79-97); Monocytes # (Auto) 0.9 K/mm3 (0.0-0.8); Monocytes % (Auto) 5.8 % (0.0-7.3); Platelet Count 188 K/mm3 (140-440); Red Blood Count 3.86 M/mm3 (3.65-5.03); Red Cell Distribution Width 15.1 % (13.2-15.2)
[2020-02-02 08:33] LABS: Calcium 7.1 mg/dL (8.4-10.2)
[2020-02-02] MEDS ORDERED: DEXTROSE 50% IN WATER (25GM) 50 ML SYRINGE IV PRN (09:22)
--- NOTE | 2020-02-02 09:22 | Progress Note ---
Assessment and Plan 34 y/o morbidly obese female admitted with sepsis with shock, thought secondary to urinary source with newly diagnosed diabetes and A1c of 13 1. De-escalate abx therapy. GIven she was significant dehydrated and vasodilated, will continue IV with Rocephin. 2. Suggest CC diet and nutrition consult 3. Needs weight based insulin therapy. Type will depend on coverage and affordability. Will defer to primary in regards to this and what they would prefer. 4. Renal function is unchanged this am. Likely needs more volume despite joelle ng off pressors. Will order some more fluids. 5. Weight loss 6. Needs fasting lipid panel at some point to rule out cholesterol issues 7. Agree with DVT and GI prophylaxis 8. Transfer to floor. IMS to decide on insulin dosing. Per chart, patient is self pay so may need 70/30 Subjective Date of service: 02/02/20 Interval history: Off pressors since prior to arrival to unit. Feels somewhat better but still no appetite with nausea. Patient was on Metformin as an outpatient but stopped secondary to GI Side effects. Was on Glyburide BID, but doesn't sound like she was compliant. E. Coli in urine is gu sensitive. Objective - Constitutional Vitals: Vital Signs - 12hr 02/01/20 02/01/20 02/01/20 21:20 21:30 21:40 Temperature Pulse Rate 124 H 122 H 122 H Pulse Rate [ From Monitor] Respiratory Rate Blood Pressure 116/78 106/68 106/68 O2 Sat by Pulse 93 95 94 Oximetry 02/01/20 02/01/20 02/01/20 21:50 22:00 22:10 Temperature Pulse Rate 124 H 121 H 123 H Pulse Rate [ From Monitor] Respiratory Rate Blood Pressure 116/78 116/78 116/78 O2 Sat by Pulse 97 95 95 Oximetry 02/01/20 02/01/20 02/01/20 22:20 22:30 22:40 Temperature Pulse Rate 125 H 127 H 126 H Pulse Rate [ From Monitor] Respiratory Rate Blood Pressure 116/78 116/78 116/78 O2 Sat by Pulse 94 90 95 Oximetry 02/01/20 02/01/20 02/01/20 22:50 23:00 23:10 Temperature Pulse Rate 123 H 126 H 125 H Pulse Rate [ From Monitor] Respiratory Rate Blood Pressure 116/78 116/78 116/78 O2 Sat by Pulse 94 94 95 Oximetry 02/01/20 02/01/20 02/01/20 23:20 23:30 23:32 Temperature Pulse Rate 123 H Pulse Rate [ From Monitor] Respiratory Rate Blood Pressure 116/78 116/78 116/78 O2 Sat by Pulse 94 95 95 Oximetry 02/01/20 02/01/20 02/01/20 23:40 23:42 23:50 Temperature Pulse Rate 128 H Pulse Rate [ From Monitor] Respiratory Rate Blood Pressure 116/78 116/78 116/78 O2 Sat by Pulse 97 97 95 Oximetry 02/02/20 02/02/20 02/02/20 00:00 00:10 00:20 Temperature 98.5 F Pulse Rate 121 H 122 H 121 H Pulse Rate [ 122 H From Monitor] Respiratory 19 Rate Blood Pressure 116/78 116/78 116/78 O2 Sat by Pulse 98 98 97 Oximetry 02/02/20 02/02/20 02/02/20 00:30 00:40 00:50 Temperature Pulse Rate 121 H 121 H 123 H Pulse Rate [ From Monitor] Respiratory Rate Blood Pressure 116/78 116/78 116/78 O2 Sat by Pulse 96 94 95 Oximetry 02/02/20 02/02/20 02/02/20 01:00 01:10 01:20 Temperature Pulse Rate 124 H 123 H 124 H Pulse Rate [ From Monitor] Respiratory Rate Blood Pressure 116/78 116/78 116/78 O2 Sat by Pulse 95 94 95 Oximetry 02/02/20 02/02/20 02/02/20 01:30 01:40 01:50 Temperature Pulse Rate 126 H 120 H Pulse Rate [ From Monitor] Respiratory 20 Rate Blood Pressure 116/78 116/78 116/78 O2 Sat by Pulse 93 94 90 Oximetry 02/02/20 02/02/20 02/02/20 02:00 02:10 02:20 Temperature Pulse Rate 123 H 121 H 123 H Pulse Rate [ From Monitor] Respiratory 19 19 21 Rate Blood Pressure 116/78 116/78 116/78 O2 Sat by Pulse 93 93 93 Oximetry 02/02/20 02/02/20 02/02/20 02:30 02:40 02:50 Temperature Pulse Rate 125 H 123 H 124 H Pulse Rate [ From Monitor] Respiratory 18 20 20 Rate Blood Pressure 116/78 116/78 116/78 O2 Sat by Pulse 93 95 93 Oximetry 1102/02/20 02/02/20 03:00 03:10 03:20 Temperature Pulse Rate 126 H 122 H 123 H Pulse Rate [ From Monitor] Respiratory 29 H 20 20 Rate Blood Pressure 116/78 116/78 116/78 O2 Sat by Pulse 93 93 95 Oximetry 02/02/20 02/02/20 02/02/20 03:30 03:40 03:50 Temperature Pulse Rate 119 H 119 H 120 H Pulse Rate [ From Monitor] Respiratory 22 21 23 Rate Blood Pressure 116/78 116/78 116/78 O2 Sat by Pulse 94 93 94 Oximetry 02/02/20 02/02/20 02/02/20 04:00 04:10 04:20 Temperature 98.4 F Pulse Rate 120 H 122 H Pulse Rate [ 117 H From Monitor] Respiratory 18 20 18 Rate Blood Pressure 116/78 116/78 116/78 O2 Sat by Pulse 93 92 92 Oximetry 02/02/20 02/02/20 02/02/20 04:30 04:40 04:50 Temperature Pulse Rate 123 H 119 H 118 H Pulse Rate [ From Monitor] Respiratory 17 18 19 Rate Blood Pressure 116/78 116/78 116/78 O2 Sat by Pulse 94 95 94 Oximetry 02/02/20 02/02/20 02/02/20 05:00 05:10 05:20 Temperature Pulse Rate 119 H 117 H 114 H Pulse Rate [ From Monitor] Respiratory 17 18 16 Rate Blood Pressure 116/78 116/78 116/78 O2 Sat by Pulse 94 95 94 Oximetry 02/02/20 02/02/20 02/02/20 05:30 05:40 05:50 Temperature Pulse Rate 116 H 117 H 115 H Pulse Rate [ From Monitor] Respiratory 17 15 17 Rate Blood Pressure 116/78 116/78 116/78 O2 Sat by Pulse 95 95 94 Oximetry 02/02/20 02/02/20 02/02/20 06:00 06:10 06:20 Temperature Pulse Rate 116 H 117 H 118 H Pulse Rate [ From Monitor] Respiratory 18 16 18 Rate Blood Pressure 116/78 116/78 116/78 O2 Sat by Pulse 95 94 97 Oximetry 02/02/20 02/02/20 02/02/20 06:30 06:40 06:50 Temperature Pulse Rate 118 H 117 H 118 H Pulse Rate [ From Monitor] Respiratory 14 15 17 Rate Blood Pressure 116/78 116/78 116/78 O2 Sat by Pulse 96 95 96 Oximetry 02/02/20 02/02/20 02/02/20 07:00 07:10 07:20 Temperature Pulse Rate 120 H 118 H 117 H Pulse Rate [ From Monitor] Respiratory 18 19 19 Rate Blood Pressure 116/78 116/78 116/78 O2 Sat by Pulse 91 95 93 Oximetry 02/02/20 02/02/20 02/02/20 07:28 07:30 07:40 Temperature 98.1 F Pulse Rate 120 H 114 H Pulse Rate [ From Monitor] Respiratory 18 17 Rate Blood Pressure 116/78 116/78 O2 Sat by Pulse 96 96 Oximetry 02/02/20 02/02/20 02/02/20 07:50 08:00 08:10 Temperature Pulse Rate 119 H 118 H 119 H Pulse Rate [ 119 H From Monitor] Respiratory 18 14 15 Rate Blood Pressure 128/81 128/81 128/81 O2 Sat by Pulse 93 94 97 Oximetry 02/02/20 02/02/20 02/02/20 08:20 08:29 08:30 Temperature Pulse Rate 119 H 110 H 120 H Pulse Rate [ From Monitor] Respiratory 22 18 Rate Blood Pressure 128/81 128/81 O2 Sat by Pulse 95 96 Oximetry 02/02/20 02/02/20 02/02/20 08:40 08:50 09:00 Temperature Pulse Rate 130 H 117 H 115 H Pulse Rate [ From Monitor] Respiratory 15 19 22 Rate Blood Pressure 109/91 96/66 115/77 O2 Sat by Pulse 96 96 95 Oximetry General appearance: Present: no acute distress, well-nourished, obese - EENT Eyes: PERRL, EOM intact ENT: hearing intact, clear oral mucosa, dentition normal - Neck Neck: supple, normal ROM - Respiratory Respiratory effort: normal Respiratory: bilateral: CTA - Cardiovascular Rhythm: regular (sinus tach) Extremities: no ischemia - Labs CBC & Chem 7: 02/02/20 07:01 02/02/20 07:01 Labs: Abnormal lab results 02/01/20 02/01/20 02/01/20 Range/Units 11:30 14:26 18:09 WBC (4.5-11.0) K/mm3 Hgb (10.1-14.3) gm/dl MCH (28-32) pg Lymph % (Auto) (13.4-35.0) % Lymph # (Auto) (1.2-5.4) K/mm3 [place] # (Auto) (0.0-0.8) K/mm3 Seg Neutrophils % (40.0-70.0) % Seg Neutrophils # (1.8-7.7) K/mm3 Chloride (98-107) mmol/L Carbon Dioxide (22-30) mmol/L Creatinine (0.6-1.2) mg/dL Glucose (65-100) mg/dL POC Glucose 286 H 297 H 297 H (70-105) mg/dL Calcium (8.4-10.2) mg/dL 02/01/20 02/02/20 02/02/20 Range/Units 21:04 03:46 06:37 WBC (4.5-11.0) K/mm3 Hgb (10.1-14.3) gm/dl MCH (28-32) pg Lymph % (Auto) (13.4-35.0) % Lymph # (Auto) (1.2-5.4) K/mm3 [place] # (Auto) (0.0-0.8) K/mm3 Seg Neutrophils % (40.0-70.0) % Seg Neutrophils # (1.8-7.7) K/mm3 Chloride (98-107) mmol/L Carbon Dioxide (22-30) mmol/L Creatinine (0.6-1.2) mg/dL Glucose (65-100) mg/dL POC Glucose 264 H 209 H 206 H (70-105) mg/dL Calcium (8.4-10.2) mg/dL 02/02/20 02/02/20 Range/Units 07:01 07:01 WBC 15.1 H (4.5-11.0) K/mm3 Hgb 9.7 L (10.1-14.3) gm/dl MCH 25 L (28-32) pg Lymph % (Auto) 5.9 L (13.4-35.0) % Lymph # (Auto) 0.9 L (1.2-5.4) K/mm3 [place] # (Auto) 0.9 H (0.0-0.8) K/mm3 Seg Neutrophils % 86.3 H (40.0-70.0) % Seg Neutrophils # 13.0 H (1.8-7.7) K/mm3 Chloride 111.9 H (98-107) mmol/L Carbon Dioxide 20 L (22-30) mmol/L Creatinine 1.4 H (0.6-1.2) mg/dL Glucose 206 H (65-100) mg/dL POC Glucose (70-105) mg/dL Calcium 7.1 L (8.4-10.2) mg/dL Medications & Allergies - Medications Allergies/Adverse Reactions: Allergies No Known Allergies Allergy (Verified 01/31/20 22:06) Home Medications: Home Medications Medication Instructions Recorded Confirmed Last Taken Type Ciprofloxacin HCl [Ciprofloxacin 500 mg PO Q12HR #20 tab 01/31/20 Unknown Rx TAB] Promethazine [Phenergan] 25 mg PO Q6HR PRN #20 tab 01/31/20 Unknown Rx Promethazine [Phenergan] 25 mg DE Q6HR PRN #5 supp.rect 01/31/20 Unknown Rx Naproxen [EC-Naproxen] 500 mg PO BID PRN 02/01/20 02/01/20 Unknown History glyBURIDE [Glyburide] 7.5 mg PO BID 02/01/20 02/01/20 01/31/20 History Active Medications: Generic Name Dose Route Start Last Admin Trade Name Freq PRN Reason Stop Dose Admin Acetaminophen 650 mg 02/01/20 05:35 Tylenol PO Q4H PRN Pain MILD(1-3)/Fever >100.5/LOVE Famotidine 20 mg 02/01/20 10:00 02/01/20 21:49 Pepcid IV 20 mg BID DAYANA Administration Heparin Sodium (Porcine) 5,000 unit 02/01/20 10:00 02/01/20 21:49 Heparin SUB-Q 5,000 unit Q12HR DAYANA Administration Hydromorphone HCl 0.25 mg 02/01/20 05:35 Dilaudid IV Q3H PRN Pain, Moderate (4-6) Norepinephrine 4 mg in 250 mls @ 7.5 mls/hr 02/01/20 06:00 02/01/20 09:13 Levophed Drip 4 Mg/Ns 250 Ml IV 0 mcg/min TITR DAYANA 0 mls/hr Titration Protocol 2 MCG/MIN Sodium Chloride 1,000 mls @ 100 mls/hr 02/01/20 05:45 02/02/20 04:12 Nacl 0.9% 1000 Ml IV 100 mls/hr DIRECT DAYANA Administration Cefepime HCl 2 gm in 100 mls @ 200 mls/hr 02/01/20 22:00 02/01/20 21:44 Cefepime/Ns 2 Gm/100 Ml IV 200 mls/hr Q12HR DAYANA Administration Protocol Insulin Human Lispro 0 unit 02/01/20 06:00 02/02/20 04:10 Humalog SUB-Q 3 unit Q4HR DAYANA Administration Protocol Ondansetron HCl 4 mg 02/01/20 05:35 02/01/20 21:54 Zofran IV 4 mg Q8H PRN Administration Nausea And Vomiting Oxycodone/Acetaminophen 1 tab 02/01/20 05:35 02/02/20 07:50 Percocet 5/325 PO 1 tab Q6H PRN Administration Pain, Moderate (4-6) Sodium Chloride 10 ml 02/01/20 10:00 02/01/20 10:31 Sodium Chloride Flush Syringe 10 Ml IV 10 ml BID DAYANA Administration Sodium Chloride 10 ml 02/01/20 05:35 Sodium Chloride Flush Syringe 10 Ml IV PRN PRN LINE FLUSH HEART Score - HEART Score Age: < 45 Risk factors: 1-2 risk factors Troponin: < normal limit
[2020-02-02] MEDS: HEPARIN 5,000 UNIT/1 ML VIAL SUB-Q SCH ×2 (09:37→21:38)
[2020-02-02] MEDS: FAMOTIDINE 20 MG/2 ML INJ IV SCH ×2 (09:37→21:38)
[2020-02-02] MEDS: ONDANSETRON 4 MG/2 ML INJ IV PRN ×2 (09:37→13:47)
[2020-02-02] MEDS: CEFEPIME/NS 2 GM/100 ML 2 GM/100 ML BAG IV SCH ×2 (09:38→21:38)
[2020-02-02] MEDS ORDERED: SODIUM CHLORIDE 0.9% 1000 ML 1,000 ML IV SCH (09:45)
--- NOTE | 2020-02-02 12:39 | Progress Note ---
Assessment and Plan - Patient Problems (1) Hyponatremia Current Visit: Yes Status: Acute Plan to address problem: Hyponatremia has resolved. Sodium now 138 with IV volume replacement. (2) Pyelonephritis Current Visit: Yes Status: Acute Plan to address problem: Continue Rocephin. Anshul pain is decreased. Fever curve is decreased. Continue present antibiotics follow-up blood culture data. (3) Sepsis Current Visit: Yes Status: Acute Plan to address problem: Sepsis with shock. Secondary to UTI pyelonephritis. Continues to improve. White count has decreased from 20. Fever curve is decreased. Able to discontinue pressor support. Also flank pain is improved. Continue present management antibiotics IV fluids. (4) Septic shock Current Visit: Yes Status: Acute (5) T2DM (type 2 diabetes mellitus) Current Visit: Yes Status: Chronic Qualifiers: Diabetes mellitus assisted insulin use: unspecified assisted insulin use status Plan to address problem: Uncontrolled. Has been uncontrolled prior to admission given elevated A1c. We will continue insulin for now. I did inform patient she will be taken insulin and will advance as tolerated. Patient is not able to eat any food now so we will not be too aggressive today. (6) Morbid obesity with BMI of 50.0-59.9, adult Current Visit: Yes Status: Acute Plan to address problem: Decrease calorie increase exercise when outpatient. Subjective Date of service: 02/02/20 Principal diagnosis: Sepsis with UTI Interval history: Patient much better today. Fever curve is gone down. Flank pain is less. Patient able to tolerate water today. Yesterday she cannot even tolerate water. Able to wean pressors. Also pulses much better. From 1 47-1 13. Stable for transfer out of ICU today. Objective - Constitutional Vitals: Vital Signs - 12hr 02/02/20 02/02/20 02/02/20 00:40 00:50 01:00 Temperature Pulse Rate 121 H 123 H 124 H Pulse Rate [ From Monitor] Respiratory Rate Blood Pressure 116/78 116/78 116/78 O2 Sat by Pulse 94 95 95 Oximetry 02/02/20 02/02/20 02/02/20 01:10 01:20 01:30 Temperature Pulse Rate 123 H 124 H 126 H Pulse Rate [ From Monitor] Respiratory Rate Blood Pressure 116/78 116/78 116/78 O2 Sat by Pulse 94 95 93 Oximetry 02/02/20 02/02/20 02/02/20 01:40 01:50 02:00 Temperature Pulse Rate 120 H 123 H Pulse Rate [ From Monitor] Respiratory 20 19 Rate Blood Pressure 116/78 116/78 116/78 O2 Sat by Pulse 94 90 93 Oximetry 02/02/20 02/02/20 02/02/20 02:10 02:20 02:30 Temperature Pulse Rate 121 H 123 H 125 H Pulse Rate [ From Monitor] Respiratory 19 21 18 Rate Blood Pressure 116/78 116/78 116/78 O2 Sat by Pulse 93 93 93 Oximetry 02/02/20 02/02/20 02/02/20 02:40 02:50 03:00 Temperature Pulse Rate 123 H 124 H 126 H Pulse Rate [ From Monitor] Respiratory 20 20 29 H Rate Blood Pressure 116/78 116/78 116/78 O2 Sat by Pulse 95 93 93 Oximetry 02/02/20 02/02/20 02/02/20 03:10 03:20 03:30 Temperature Pulse Rate 122 H 123 H 119 H Pulse Rate [ From Monitor] Respiratory 20 20 22 Rate Blood Pressure 116/78 116/78 116/78 O2 Sat by Pulse 93 95 94 Oximetry 02/02/20 02/02/20 02/02/20 03:40 03:50 04:00 Temperature 98.4 F Pulse Rate 119 H 120 H Pulse Rate [ 117 H From Monitor] Respiratory 21 23 18 Rate Blood Pressure 116/78 116/78 116/78 O2 Sat by Pulse 93 94 93 Oximetry 02/02/20 02/02/20 02/02/20 04:10 04:20 04:30 Temperature Pulse Rate 120 H 122 H 123 H Pulse Rate [ From Monitor] Respiratory 20 18 17 Rate Blood Pressure 116/78 116/78 116/78 O2 Sat by Pulse 92 92 94 Oximetry 02/02/20 02/02/20 02/02/20 04:40 04:50 05:00 Temperature Pulse Rate 119 H 118 H 119 H Pulse Rate [ From Monitor] Respiratory 18 19 17 Rate Blood Pressure 116/78 116/78 116/78 O2 Sat by Pulse 95 94 94 Oximetry 02/02/20 02/02/20 02/02/20 05:10 05:20 05:30 Temperature Pulse Rate 117 H 114 H 116 H Pulse Rate [ From Monitor] Respiratory 18 16 17 Rate Blood Pressure 116/78 116/78 116/78 O2 Sat by Pulse 95 94 95 Oximetry 02/02/20 02/02/20 02/02/20 05:40 05:50 06:00 Temperature Pulse Rate 117 H 115 H 116 H Pulse Rate [ From Monitor] Respiratory 15 17 18 Rate Blood Pressure 116/78 116/78 116/78 O2 Sat by Pulse 95 94 95 Oximetry 02/02/20 02/02/20 02/02/20 06:10 06:20 06:30 Temperature Pulse Rate 117 H 118 H 118 H Pulse Rate [ From Monitor] Respiratory 16 18 14 Rate Blood Pressure 116/78 116/78 116/78 O2 Sat by Pulse 94 97 96 Oximetry 02/02/20 02/02/20 02/02/20 06:40 06:50 07:00 Temperature Pulse Rate 117 H 118 H 120 H Pulse Rate [ From Monitor] Respiratory 15 17 18 Rate Blood Pressure 116/78 116/78 116/78 O2 Sat by Pulse 95 96 91 Oximetry 02/02/20 02/02/20 02/02/20 07:10 07:20 07:28 Temperature 98.1 F Pulse Rate 118 H 117 H Pulse Rate [ From Monitor] Respiratory 19 19 Rate Blood Pressure 116/78 116/78 O2 Sat by Pulse 95 93 Oximetry 02/02/20 02/02/20 02/02/20 07:30 07:40 07:50 Temperature Pulse Rate 120 H 114 H 119 H Pulse Rate [ From Monitor] Respiratory 18 17 18 Rate Blood Pressure 116/78 116/78 128/81 O2 Sat by Pulse 96 96 93 Oximetry 02/02/20 02/02/20 02/02/20 08:00 08:10 08:20 Temperature Pulse Rate 118 H 119 H 119 H Pulse Rate [ 119 H From Monitor] Respiratory 14 15 22 Rate Blood Pressure 128/81 128/81 128/81 O2 Sat by Pulse 94 97 95 Oximetry 02/02/20 02/02/20 02/02/20 08:29 08:30 08:40 Temperature Pulse Rate 110 H 120 H 130 H Pulse Rate [ From Monitor] Respiratory 18 15 Rate Blood Pressure 128/81 109/91 O2 Sat by Pulse 96 96 Oximetry 02/02/20 02/02/20 02/02/20 08:50 09:00 09:10 Temperature Pulse Rate 117 H 115 H 112 H Pulse Rate [ From Monitor] Respiratory 19 22 15 Rate Blood Pressure 96/66 115/77 87/51 O2 Sat by Pulse 96 95 96 Oximetry 02/02/20 02/02/20 02/02/20 09:20 09:30 09:40 Temperature Pulse Rate 111 H 112 H 107 H Pulse Rate [ From Monitor] Respiratory 16 17 15 Rate Blood Pressure 87/51 87/51 92/61 O2 Sat by Pulse 93 95 92 Oximetry 02/02/20 02/02/20 02/02/20 09:50 10:00 10:10 Temperature Pulse Rate 111 H 106 H 111 H Pulse Rate [ From Monitor] Respiratory 15 15 13 Rate Blood Pressure 92/61 118/72 118/72 O2 Sat by Pulse 94 92 95 Oximetry 02/02/20 02/02/20 02/02/20 10:20 10:30 10:40 Temperature Pulse Rate 109 H 107 H 107 H Pulse Rate [ From Monitor] Respiratory 14 19 14 Rate Blood Pressure 118/72 109/78 109/78 O2 Sat by Pulse 96 91 92 Oximetry 02/02/20 02/02/20 10:50 11:00 Temperature Pulse Rate 109 H 111 H Pulse Rate [ From Monitor] Respiratory 22 15 Rate Blood Pressure 109/78 109/78 O2 Sat by Pulse 93 92 Oximetry General appearance: Present: no acute distress, well-nourished - EENT Eyes: PERRL, EOM intact ENT: hearing intact, clear oral mucosa Ears: bilateral: normal - Neck Neck: supple, normal ROM - Respiratory Respiratory effort: normal Respiratory: bilateral: CTA - Breasts Breasts: normal - Cardiovascular Rhythm: regular Heart Sounds: Present: S1 & S2. Absent: gallop, rub Extremities: pulses intact, No edema, normal color, Full ROM - Gastrointestinal General gastrointestinal: Present: soft, non-tender, non-distended, normal bowel sounds - Genitourinary Female genitourinary: normal - Integumentary Integumentary: clear, warm, dry - Musculoskeletal Musculoskeletal: 1, strength equal bilaterally - Neurologic Neurologic: moves all extremities - Psychiatric Psychiatric: memory intact, appropriate mood/affect, intact judgment & insight - Labs CBC & Chem 7: 02/02/20 07:01 02/02/20 07:01 Labs: Abnormal lab results 02/01/20 02/01/20 02/01/20 Range/Units 14:26 18:09 21:04 WBC (4.5-11.0) K/mm3 Hgb (10.1-14.3) gm/dl MCH (28-32) pg Lymph % (Auto) (13.4-35.0) % Lymph # (Auto) (1.2-5.4) K/mm3 [place] # (Auto) (0.0-0.8) K/mm3 Seg Neutrophils % (40.0-70.0) % Seg Neutrophils # (1.8-7.7) K/mm3 Chloride (98-107) mmol/L Carbon Dioxide (22-30) mmol/L Creatinine (0.6-1.2) mg/dL Glucose (65-100) mg/dL POC Glucose 297 H 297 H 264 H (70-105) mg/dL Calcium (8.4-10.2) mg/dL 02/02/20 02/02/20 02/02/20 Range/Units 03:46 06:37 07:01 WBC 15.1 H (4.5-11.0) K/mm3 Hgb 9.7 L (10.1-14.3) gm/dl MCH 25 L (28-32) pg Lymph % (Auto) 5.9 L (13.4-35.0) % Lymph # (Auto) 0.9 L (1.2-5.4) K/mm3 [place] # (Auto) 0.9 H (0.0-0.8) K/mm3 Seg Neutrophils % 86.3 H (40.0-70.0) % Seg Neutrophils # 13.0 H (1.8-7.7) K/mm3 Chloride (98-107) mmol/L Carbon Dioxide (22-30) mmol/L Creatinine (0.6-1.2) mg/dL Glucose (65-100) mg/dL POC Glucose 209 H 206 H (70-105) mg/dL Calcium (8.4-10.2) mg/dL 02/02/20 02/02/20 Range/Units 07:01 10:11 WBC (4.5-11.0) K/mm3 Hgb (10.1-14.3) gm/dl MCH (28-32) pg Lymph % (Auto) (13.4-35.0) % Lymph # (Auto) (1.2-5.4) K/mm3 [place] # (Auto) (0.0-0.8) K/mm3 Seg Neutrophils % (40.0-70.0) % Seg Neutrophils # (1.8-7.7) K/mm3 Chloride 111.9 H (98-107) mmol/L Carbon Dioxide 20 L (22-30) mmol/L Creatinine 1.4 H (0.6-1.2) mg/dL Glucose 206 H (65-100) mg/dL POC Glucose 243 H (70-105) mg/dL Calcium 7.1 L (8.4-10.2) mg/dL HEART Score - HEART Score Age: < 45 Risk factors: 1-2 risk factors Troponin: < normal limit
[2020-02-02] MEDS ORDERED: INSULIN NPH/REGULAR 70/30 INJ SUB-Q SCH (17:00)
[2020-02-02] MEDS: INSULIN NPH/REGULAR 70/30 INJ SUB-Q SCH (17:46)
[2020-02-02] MEDS: ACETAMINOPHEN 325 MG TAB PO PRN (21:52)
[2020-02-03] MEDS: INSULIN LISPRO 100 UNIT/ML VIAL 3 mL SUB-Q SCH ×6 (02:25→23:41)
[2020-02-03 10:23] LABS: Basophils # (Auto) 0.1 K/mm3 (0.0-0.1); Eosinophils # (Auto) 0.1 K/mm3 (0.0-0.4); Eosinophils % (Auto) 0.6 % (0.0-4.3); Hematocrit 31.5 % (30.3-42.9); Lymphocytes # (Auto) 1.1 K/mm3 (1.2-5.4); Lymphocytes % (Auto) 10.6 % (13.4-35.0); Mean Corpuscular HGB Conc 32 % (30-34); Mean Corpuscular Volume 80 fl (79-97); Monocytes # (Auto) 0.6 K/mm3 (0.0-0.8); Monocytes % (Auto) 5.9 % (0.0-7.3); Platelet Count 216 K/mm3 (140-440); Red Blood Count 3.94 M/mm3 (3.65-5.03); Red Cell Distribution Width 15.6 % (13.2-15.2)
[2020-02-03 10:39] LABS: Calcium 7.9 mg/dL (8.4-10.2)
[2020-02-03] MEDS: CEFEPIME/NS 2 GM/100 ML 2 GM/100 ML BAG IV SCH (10:39)
[2020-02-03] MEDS: HEPARIN 5,000 UNIT/1 ML VIAL SUB-Q SCH ×2 (10:39→21:53)
[2020-02-03] MEDS: FAMOTIDINE 20 MG/2 ML INJ IV SCH ×2 (10:40→21:53)
[2020-02-03] MEDS: oxyCODONE /ACETAMINOPHEN 5-325MG TAB PO PRN ×2 (10:41→21:54)
[2020-02-03] MEDS: LOSARTAN 50 MG TAB PO SCH (11:01)
[2020-02-03] MEDS: INSULIN NPH/REGULAR 70/30 INJ SUB-Q SCH ×2 (11:20→19:57)
--- NOTE | 2020-02-03 11:49 | Progress Note ---
Assessment and Plan Cultures: 01/31/2020 blood culture: No growth today Urine culture: E. coli, pansensitive A/P: 34/F with DM, obesity admitted with: #Septic shock: Resolved source likely urinary tract infection, however with high fever 102, hypoxia worsening cough, should rule out pneumonia/COVID-19 infection #Pneumonia: Repeat chest ray with bibasilar infiltrates. Patient with high fever of 102 today. Also hypoxic on 2 L nasal cannula. ?CAP versus COVID-19 #UTI: UA with significant pyuria. Urine culture grew pansensitive E. coli. #Uncontrolled diabetes mellitus #Morbid obesity #MODESTA: renally dose abx. Recs: -Obtain SARS-CoV-2 PCR -Stop cefepime -Start ceftriaxone -Remove femoral line MD [facility]yFormer[facility] ([facility] Office [phone] Subjective Date of service: 02/03/20 Principal diagnosis: Sepsis with UTI Interval history: Patient remains with high fever 102, complaining of cough, shortness of breath on 2 L nasal cannula Objective - Exam Narrative Exam: General appearance: Alert in NAD in mild respiratory distress Eyes: anicteric sclerae, moist conjunctivae; no lid-lag; PERRLA HENT: Normocephalic, Atraumatic; normal external ears, nares open, oropharynx clear Neck: supple, tracheal midline, no JVD Lungs: Bilateral crackles CV: RRR no murmur Abdomen: Soft, non-tender; no masses or hepatosplenomegaly Extremities: no edema, no cyanosis Skin: No rash. Psych: no agitated Neuro: alert and oriented x 3. Moving all extermities - Constitutional Vitals: Vital Signs Temp Pulse Resp BP Pulse Ox 99.8 F H 114 H 16 153/101 92 02/03/20 04:39 02/03/20 11:01 02/03/20 04:39 02/03/20 11:01 02/03/20 04:39 Temperature -Last 24 Hours Temperature 99.8 F Temperature 99.7 F Temperature 98.0 F Temperature 97.6 F - Labs CBC & Chem 7: 02/03/20 09:26 02/03/20 09:26 Labs: Abnormal lab results 02/02/20 02/02/20 02/02/20 Range/Units 14:38 16:55 21:31 Hgb (10.1-14.3) gm/dl MCH (28-32) pg RDW (13.2-15.2) % Lymph % (Auto) (13.4-35.0) % Lymph # (Auto) (1.2-5.4) K/mm3 Seg Neutrophils % (40.0-70.0) % Seg Neutrophils # (1.8-7.7) K/mm3 Chloride (98-107) mmol/L Carbon Dioxide (22-30) mmol/L Creatinine (0.6-1.2) mg/dL Glucose (65-100) mg/dL POC Glucose 218 H 196 H 222 H (70-105) mg/dL Calcium (8.4-10.2) mg/dL 02/03/20 02/03/20 02/03/20 Range/Units 06:02 07:54 09:26 Hgb 10.0 L (10.1-14.3) gm/dl MCH 25 L (28-32) pg RDW 15.6 H (13.2-15.2) % Lymph % (Auto) 10.6 L (13.4-35.0) % Lymph # (Auto) 1.1 L (1.2-5.4) K/mm3 Seg Neutrophils % 81.9 H (40.0-70.0) % Seg Neutrophils # 8.3 H (1.8-7.7) K/mm3 Chloride (98-107) mmol/L Carbon Dioxide (22-30) mmol/L Creatinine (0.6-1.2) mg/dL Glucose (65-100) mg/dL POC Glucose 198 H 207 H (70-105) mg/dL Calcium (8.4-10.2) mg/dL 02/03/20 Range/Units 09:26 Hgb (10.1-14.3) gm/dl MCH (28-32) pg RDW (13.2-15.2) % Lymph % (Auto) (13.4-35.0) % Lymph # (Auto) (1.2-5.4) K/mm3 Seg Neutrophils % (40.0-70.0) % Seg Neutrophils # (1.8-7.7) K/mm3 Chloride 109.0 H (98-107) mmol/L Carbon Dioxide 21 L (22-30) mmol/L Creatinine 1.4 H (0.6-1.2) mg/dL Glucose 235 H (65-100) mg/dL POC Glucose (70-105) mg/dL Calcium 7.9 L (8.4-10.2) mg/dL
[2020-02-03] MEDS: ACETAMINOPHEN 325 MG TAB PO PRN (13:28)
[2020-02-03] MEDS: cefTRIAXone/NS 2 GM/100 ML 2 GM/100 ML BAG IV SCH (13:30)
--- NOTE | 2020-02-03 15:11 | XRay Report ---
CHEST 1 VIEW 02/03/2020 1:49 PM INDICATION / CLINICAL INFORMATION: sob. COMPARISON: None available. FINDINGS: SUPPORT DEVICES: None. HEART / MEDIASTINUM: No significant abnormality. LUNGS / PLEURA: New mild opacity at the bases left greater than right. The mid and upper zone and are clear. No pneumothorax. ADDITIONAL FINDINGS: No significant additional findings. IMPRESSION: New basilar opacity. It is uncertain if the findings represent atelectasis or developing pneumonia. Signer Name: Blake Shane MD Signed: 02/03/2020 3:06 PM Workstation Name: [id number]
--- NOTE | 2020-02-03 17:39 | Progress Note ---
Assessment and Plan - Patient Problems (1) Hyponatremia Current Visit: Yes Status: Acute Plan to address problem: Hyponatremia has resolved. Sodium now 137 with IV volume replacement. (2) Pyelonephritis Current Visit: Yes Status: Acute Plan to address problem: Patient still has fever source UTI. Continue current antibiotic coverage. Medications changed to Rocephin. Fever follow blood culture data. Urine showed E. coli. Pansensitive. Patient still has fever of 102. Flank pain but minimal. (3) Sepsis Current Visit: Yes Status: Acute Plan to address problem: Sepsis with shock. Secondary to UTI pyelonephritis. Continues to improve. White count has decreased from 20. Fever curve is decreased. Able to discontinue pressor support. Also flank pain is improved. Continue present management antibiotics IV fluids. (4) Septic shock Current Visit: Yes Status: Acute Plan to address problem: Sepsis septic shock. Patient able to wean off pressor support. Continue IV fluids. Continue IV antibiotics Rocephin. (5) T2DM (type 2 diabetes mellitus) Current Visit: Yes Status: Chronic Qualifiers: Diabetes mellitus tank terminal gauger insulin use: unspecified tank terminal gauger insulin use status Plan to address problem: Uncontrolled. Has been uncontrolled prior to admission given elevated A1c. We will continue insulin for now. I did inform patient she will be taken insulin and will advance as tolerated. Patient is not able to eat any food now so we will not be too aggressive today patient is still not able to eat any food however sugar is high will titrate up very small doses.. Will increase insulin to 28 units. (6) Morbid obesity with BMI of 50.0-59.9, adult Current Visit: Yes Status: Acute Plan to address problem: Decrease calorie increase exercise when outpatient. Subjective Date of service: 02/03/20 Principal diagnosis: Sepsis with UTI Interval history: February 03, 2020 Patient at present feels better today improved. Still has fever T-max 102. Flank pain is improved. Patient still unable to tolerate p.o. Objective - Constitutional Vitals: Vital Signs - 12hr 02/03/20 02/03/20 11:01 12:04 Temperature 102.1 F H Pulse Rate 114 H 118 H Respiratory 20 Rate Blood Pressure 153/101 119/62 O2 Sat by Pulse 89 Oximetry General appearance: Present: no acute distress, well-nourished - EENT Eyes: PERRL, EOM intact ENT: hearing intact, clear oral mucosa Ears: bilateral: normal - Neck Neck: supple, normal ROM - Respiratory Respiratory effort: normal Respiratory: bilateral: CTA - Breasts Breasts: normal - Cardiovascular Rhythm: regular Heart Sounds: Present: S1 & S2. Absent: gallop, rub Extremities: pulses intact, No edema, normal color, Full ROM - Gastrointestinal General gastrointestinal: Present: soft, non-tender, non-distended, normal bowel sounds - Genitourinary Female genitourinary: normal - Integumentary Integumentary: clear, warm, dry - Musculoskeletal Musculoskeletal: 1, strength equal bilaterally - Neurologic Neurologic: moves all extremities - Psychiatric Psychiatric: memory intact, appropriate mood/affect, intact judgment & insight - Labs CBC & Chem 7: 02/03/20 09:26 02/03/20 09:26 Labs: Abnormal lab results 02/02/20 02/02/20 02/03/20 Range/Units 16:55 21:31 06:02 Hgb (10.1-14.3) gm/dl MCH (28-32) pg RDW (13.2-15.2) % Lymph % (Auto) (13.4-35.0) % Lymph # (Auto) (1.2-5.4) K/mm3 Seg Neutrophils % (40.0-70.0) % Seg Neutrophils # (1.8-7.7) K/mm3 Chloride (98-107) mmol/L Carbon Dioxide (22-30) mmol/L Creatinine (0.6-1.2) mg/dL Glucose (65-100) mg/dL POC Glucose 196 H 222 H 198 H (70-105) mg/dL Calcium (8.4-10.2) mg/dL 02/03/20 02/03/20 02/03/20 Range/Units 07:54 09:26 09:26 Hgb 10.0 L (10.1-14.3) gm/dl MCH 25 L (28-32) pg RDW 15.6 H (13.2-15.2) % Lymph % (Auto) 10.6 L (13.4-35.0) % Lymph # (Auto) 1.1 L (1.2-5.4) K/mm3 Seg Neutrophils % 81.9 H (40.0-70.0) % Seg Neutrophils # 8.3 H (1.8-7.7) K/mm3 Chloride 109.0 H (98-107) mmol/L Carbon Dioxide 21 L (22-30) mmol/L Creatinine 1.4 H (0.6-1.2) mg/dL Glucose 235 H (65-100) mg/dL POC Glucose 207 H (70-105) mg/dL Calcium 7.9 L (8.4-10.2) mg/dL 02/03/20 Range/Units 12:16 Hgb (10.1-14.3) gm/dl MCH (28-32) pg RDW (13.2-15.2) % Lymph % (Auto) (13.4-35.0) % Lymph # (Auto) (1.2-5.4) K/mm3 Seg Neutrophils % (40.0-70.0) % Seg Neutrophils # (1.8-7.7) K/mm3 Chloride (98-107) mmol/L Carbon Dioxide (22-30) mmol/L Creatinine (0.6-1.2) mg/dL Glucose (65-100) mg/dL POC Glucose 256 H (70-105) mg/dL Calcium (8.4-10.2) mg/dL HEART Score - HEART Score Age: < 45 Risk factors: 1-2 risk factors Troponin: < normal limit
[2020-02-03] MEDS ORDERED: INSULIN LISPRO 100 UNIT/ML VIAL 3 mL SUB-Q SCH (22:00)
[2020-02-03 23:15] LABS: C-Reactive Protein 22.7 mg/dL (0.00-1.30)
[2020-02-04] MEDS: INSULIN LISPRO 100 UNIT/ML VIAL 3 mL SUB-Q SCH ×5 (00:17→23:42)
[2020-02-04] MEDS: INSULIN NPH/REGULAR 70/30 INJ SUB-Q SCH ×3 (08:25→17:22)
[2020-02-04] MEDS: ACETAMINOPHEN 325 MG TAB PO PRN ×2 (08:31→16:14)
[2020-02-04] MEDS: cefTRIAXone/NS 2 GM/100 ML 2 GM/100 ML BAG IV SCH (10:05)
[2020-02-04] MEDS: LOSARTAN 50 MG TAB PO SCH (10:05)
[2020-02-04] MEDS: HEPARIN 5,000 UNIT/1 ML VIAL SUB-Q SCH ×2 (10:06→21:46)
[2020-02-04] MEDS: FAMOTIDINE 20 MG/2 ML INJ IV SCH (10:06)
--- NOTE | 2020-02-04 11:00 | Progress Note ---
Assessment and Plan Cultures: 01/31/2020 blood culture: No growth today Urine culture: E. coli, pansensitive SARS-CoV-2 PCR negative A/P: 34/F with DM, obesity admitted with: #Septic shock: Resolved source likely urinary tract infection, however with high fever 102 on 02/03/2020, remains with low-grade fever hypoxia worsening cough, should rule out pneumonia. SARS-CoV-2 PCR negative. #Pneumonia: Repeat chest ray with bibasilar infiltrates. Patient with high fever of 102 today. Also hypoxic on 2 L nasal cannula. ?CAP versus COVID-19, now on room air #UTI: UA with significant pyuria. Urine culture grew pansensitive E. coli. #Uncontrolled diabetes mellitus #Morbid obesity #MODESTA: renally dose abx. Recs: -Obtain influenza antigen and PCR -Continue ceftriaxone -Start azithromycin -Remove femoral line -Monitor fever Capri Peterson MD [facility] ([facility]) Office [phone] Subjective Date of service: 02/04/20 Principal diagnosis: Sepsis with UTI Interval history: Patient remains debilitated, feeling sick, complaining of cough, shortness of breath on 3 L nasal cannula Objective - Exam Narrative Exam: General appearance: Alert in NAD in mild respiratory distress Eyes: anicteric sclerae, moist conjunctivae; no lid-lag; PERRLA HENT: Normocephalic, Atraumatic; normal external ears, nares open, oropharynx clear Neck: supple, tracheal midline, no JVD Lungs: Bilateral crackles CV: RRR no murmur Abdomen: Soft, non-tender; no masses or hepatosplenomegaly Extremities: no edema, no cyanosis Skin: No rash. Psych: no agitated Neuro: alert and oriented x 3. Moving all extermities - Constitutional Vitals: Vital Signs Temp Pulse Resp BP Pulse Ox 99.4 F 102 H 22 153/95 97 02/04/20 05:38 02/04/20 10:05 02/04/20 05:38 02/04/20 10:05 02/04/20 05:38 Temperature -Last 24 Hours Temperature 99.4 F Temperature 99.3 F Temperature 99.6 F Temperature 102.1 F - Labs CBC & Chem 7: 02/03/20 09:26 02/03/20 09:26 Labs: Abnormal lab results 02/03/20 02/03/20 02/03/20 Range/Units 12:16 17:11 22:31 D-Dimer 2311.17 H (0-234) ng/mlDDU POC Glucose 256 H 304 H (70-105) mg/dL Lactate Dehydrogenase (91-180) units/L C-Reactive Protein (0.00-1.30) mg/dL 02/03/20 02/03/20 02/04/20 Range/Units 22:31 23:01 04:45 D-Dimer (0-234) ng/mlDDU POC Glucose 277 H 188 H (70-105) mg/dL Lactate Dehydrogenase 265 H (91-180) units/L C-Reactive Protein 22.70 H (0.00-1.30) mg/dL 02/04/20 Range/Units 07:53 D-Dimer (0-234) ng/mlDDU POC Glucose 177 H (70-105) mg/dL Lactate Dehydrogenase (91-180) units/L C-Reactive Protein (0.00-1.30) mg/dL
[2020-02-04] MEDS: AZITHROMYCIN 500 MG in SODIUM CHLORIDE 0.9% 250ML 250 ML IV SCH (12:00)
--- NOTE | 2020-02-04 17:46 | Progress Note ---
Assessment and Plan The high probability OF a clinically significant sudden or life-threatening deterioration of the cardiorespiratory system and endocrine system required my full and direct attention, intervention and postoperative management. The aggregate critical l care time was 40 minutes. The time is in addition to time spent performing reported procedures but includes the followin: Data review and interpretation 2: Patient assessment and monitoring of vital signs 3: Documentation 4:: Medication orders and management - Patient Problems (1) Septic shock Current Visit: Yes Status: Acute Plan to address problem: Patient is septic shock Elevated lactic acid level Hypotensive with blood pressure of 8860 Patient started on IV cefepime and IV vancomycin empirically. Patient has 182 white blood cells in the urine Urine cultures and blood cultures are pending E. coli in the urine sensitive to ceftriaxone and many other antibiotics (2) Pyelonephritis Current Visit: Yes Status: Acute Plan to address problem: Clinical picture consistent with acute pyelonephritis Patient started on IV cefepime and vancomycin Patient has E. coli infection (3) Hypotension Current Visit: Yes Status: Acute Plan to address problem: Hypotension secondary to septic shock Patient on IV normal saline and IV norepinephrine to be titrated to keep systolic blood pressure above 100 (4) T2DM (type 2 diabetes mellitus) Current Visit: Yes Status: Chronic Qualifiers: Diabetes mellitus fci insulin use: unspecified fci insulin use status Plan to address problem: Patient initiated on insulin every 4 hours with moderate dose sliding scale protocol Check hemoglobin A1c (5) Hyponatremia Current Visit: Yes Status: Acute Plan to address problem: Mild should correct with IV normal saline (6) Malnutrition Current Visit: Yes Status: Acute Qualifiers: Malnutrition type: unspecified type Qualified Code(s): E46 - Unspecified protein-calorie malnutrition Plan to address problem: Mild to moderate Dietary supplements requested (7) DVT prophylaxis Current Visit: Yes Status: Acute Plan to address problem: On heparin and GI prophylaxis Subjective Date of service: 02/04/20 Principal diagnosis: Sepsis with UTI Interval history: 34-year-old female, morbidly obese with history of diabetes comes in for nausea vomiting and diarrhea since yesterday. Patient began shaking uncontrollably. Patient describes them as chills. This happened at 4 AM. She had chills again after 7:30 AM. Patient denies any diarrhea or cough. Some dysuria present. Patient denies contact with coronavirus patients. Patient has slight shortness of breath. Patient is morbidly obese and patient has possible obstructive sleep apnea also. Fever in the triage area. Blood pressure was on the lower side in the 90s over 60s Objective - Exam Narrative Exam: Morbidly obese patient weighing about 356 pounds - Constitutional Vitals: Vital Signs - 12hr 02/04/20 02/04/20 02/04/20 10:00 10:05 10:34 Temperature 99.4 F Pulse Rate 102 H 102 H Respiratory 16 Rate Blood Pressure 153/95 115/60 O2 Sat by Pulse 96 93 Oximetry General appearance: Present: no acute distress, well-nourished - EENT Eyes: PERRL, EOM intact ENT: hearing intact, clear oral mucosa Ears: bilateral: normal - Neck Neck: supple, normal ROM - Respiratory Respiratory effort: normal Respiratory: bilateral: CTA - Breasts Breasts: normal - Cardiovascular Heart rate: 78 Rhythm: regular Heart Sounds: Present: S1 & S2. Absent: gallop, rub Extremities: pulses intact, No edema, normal color, Full ROM - Gastrointestinal General gastrointestinal: Present: soft, non-tender, non-distended, normal bowel sounds - Genitourinary Female genitourinary: normal - Integumentary Integumentary: clear, warm, dry - Musculoskeletal Musculoskeletal: 1, strength equal bilaterally - Neurologic Neurologic: moves all extremities - Psychiatric Psychiatric: memory intact, appropriate mood/affect, intact judgment & insight - Labs CBC & Chem 7: 02/03/20 09:26 02/06/20 04:25 Labs: Abnormal lab results 02/03/20 02/03/20 02/03/20 Range/Units 22:31 22:31 23:01 D-Dimer 2311.17 H (0-234) ng/mlDDU POC Glucose 277 H (70-105) mg/dL Lactate Dehydrogenase 265 H (91-180) units/L C-Reactive Protein 22.70 H (0.00-1.30) mg/dL 02/04/20 02/04/20 02/04/20 Range/Units 04:45 07:53 12:22 D-Dimer (0-234) ng/mlDDU POC Glucose 188 H 177 H 176 H (70-105) mg/dL Lactate Dehydrogenase (91-180) units/L C-Reactive Protein (0.00-1.30) mg/dL HEART Score - HEART Score Age: < 45 Risk factors: 1-2 risk factors Troponin: < normal limit
[2020-02-04] MEDS: FAMOTIDINE 20 MG TAB PO SCH (21:46)
[2020-02-05] MEDS: ACETAMINOPHEN 325 MG TAB PO PRN (02:54)
[2020-02-05] MEDS: INSULIN LISPRO 100 UNIT/ML VIAL 3 mL SUB-Q SCH ×4 (07:30→23:10)
[2020-02-05] MEDS: INSULIN NPH/REGULAR 70/30 INJ SUB-Q SCH ×2 (08:35→17:33)
--- NOTE | 2020-02-05 08:41 | Progress Note ---
Assessment and Plan Cultures: 01/31/2020 blood culture: No growth today Urine culture: E. coli, pansensitive SARS-CoV-2 PCR negative A/P: 34/F with DM, obesity admitted with: #Septic shock: Resolved source likely urinary tract infection, remains with low- grade fever #Pneumonia: ?CAP. Repeat chest ray with bibasilar infiltrates. SARS-CoV-2 PCR negative. #Acute hypoxia: Remains on 2 L nasal cannula. #UTI: UA with significant pyuria. Urine culture grew pansensitive E. coli. #Uncontrolled diabetes mellitus #Morbid obesity #MODESTA: renally dose abx. Recs: -Obtain influenza antigen and PCR -ordered yesterday -Check HIV test -Continue ceftriaxone -Continue azithromycin -Remove femoral line -Monitor fever Capri Peterson MD [facility] ([facility]) Office [phone] Subjective Date of service: 02/05/20 Principal diagnosis: Sepsis with UTI Interval history: Remains fairly sedated, weak, on 2 L nasal cannula Objective - Exam Narrative Exam: General appearance: Alert in NAD in mild respiratory distress obese Eyes: anicteric sclerae, moist conjunctivae; no lid-lag; PERRLA HENT: Normocephalic, Atraumatic; normal external ears, nares open, oropharynx clear Neck: supple, tracheal midline, no JVD Lungs: Scattered rhonchi bilaterally CV: RRR no murmur Abdomen: Soft, non-tender; no masses or hepatosplenomegaly Extremities: no edema, no cyanosis Skin: No rash. Psych: no agitated Neuro: alert and oriented x 3. Moving all extermities - Constitutional Vitals: Vital Signs Temp Pulse Resp BP Pulse Ox 98.3 F 98 H 20 154/99 97 02/05/20 05:05 02/05/20 05:05 02/05/20 05:05 02/05/20 05:05 02/05/20 05:05 Temperature -Last 24 Hours Temperature 98.3 F Temperature 98.6 F Temperature 100.5 F Temperature 99.4 F - Labs CBC & Chem 7: 02/03/20 09:26 02/03/20 09:26 Labs: Abnormal lab results 02/04/20 02/04/20 02/04/20 Range/Units 12:22 16:38 22:23 POC Glucose 176 H 136 H 189 H (70-105) mg/dL 02/05/20 Range/Units 07:32 POC Glucose 121 H (70-105) mg/dL
[2020-02-05] MEDS: cefTRIAXone/NS 2 GM/100 ML 2 GM/100 ML BAG IV SCH ×2 (09:44→15:21)
[2020-02-05] MEDS: AZITHROMYCIN 500 MG in SODIUM CHLORIDE 0.9% 250ML 250 ML IV SCH ×2 (09:44→15:22)
[2020-02-05] MEDS: FAMOTIDINE 20 MG TAB PO SCH ×2 (09:45→23:05)
[2020-02-05] MEDS: HEPARIN 5,000 UNIT/1 ML VIAL SUB-Q SCH ×2 (09:45→23:06)
[2020-02-05] MEDS: LOSARTAN 50 MG TAB PO SCH (09:45)
--- NOTE | 2020-02-05 15:30 | Progress Note ---
Assessment and Plan The high probability OF a clinically significant sudden or life-threatening deterioration of the cardiorespiratory system and endocrine system required my full and direct attention, intervention and postoperative management. The aggregate critical l care time was 40 minutes. The time is in addition to time spent performing reported procedures but includes the followin: Data review and interpretation 2: Patient assessment and monitoring of vital signs 3: Documentation 4:: Medication orders and management - Patient Problems (1) Septic shock Current Visit: Yes Status: Acute Plan to address problem: Patient is septic shock Elevated lactic acid level Hypotensive with blood pressure of 8860 Patient started on IV cefepime and IV vancomycin empirically. Patient has 182 white blood cells in the urine Urine cultures and blood cultures are pending (2) Pyelonephritis Current Visit: Yes Status: Acute Plan to address problem: Clinical picture consistent with acute pyelonephritis Patient started on IV ceftriaxone ID recommendations appreciated '"-'Obtain influenza antigen and PCR -ordered yesterday -Check HIV test -Continue ceftriaxone -Continue azithromycin -Remove femoral line -Monitor fever'" " (3) Hypotension Current Visit: Yes Status: Acute Plan to address problem: Hypotension resolved (4) T2DM (type 2 diabetes mellitus) Current Visit: Yes Status: Chronic Qualifiers: Diabetes mellitus stock turner insulin use: unspecified [facility] insulin use status Plan to address problem: Patient initiated on insulin every 4 hours with moderate dose sliding scale protocol Check hemoglobin A1c Medications adjusted (5) Hyponatremia Current Visit: Yes Status: Acute Plan to address problem: Improved (6) Malnutrition Current Visit: Yes Status: Acute Qualifiers: Malnutrition type: unspecified type Qualified Code(s): E46 - Unspecified protein-calorie malnutrition Plan to address problem: Mild to moderate Dietary supplements requested (7) DVT prophylaxis Current Visit: Yes Status: Acute Plan to address problem: On heparin and GI prophylaxis Subjective Date of service: 02/05/20 Principal diagnosis: Sepsis with UTI Interval history: 34-year-old female, morbidly obese with history of diabetes comes in for nausea vomiting and diarrhea since yesterday. Patient began shaking uncontrollably. Patient describes them as chills. This happened at 4 AM. She had chills again after 7:30 AM. Patient denies any diarrhea or cough. Some dysuria present. Patient denies contact with coronavirus patients. Patient has slight shortness of breath. Patient is morbidly obese and patient has possible obstructive sleep apnea also. Fever in the triage area. Blood pressure was on the lower side in the 90s over 60s 02/05/2020 Patient doing well Low-grade fever last night Objective - Exam Narrative Exam: Morbidly obese patient weighing about 356 pounds - Constitutional Vitals: Vital Signs - 12hr 02/05/20 02/05/20 02/05/20 05:05 09:45 10:00 Temperature 98.3 F Pulse Rate 98 H 98 H Respiratory 20 Rate Blood Pressure 154/99 153/99 O2 Sat by Pulse 97 96 Oximetry 02/05/20 11:44 Temperature 98.9 F Pulse Rate 98 H Respiratory 22 Rate Blood Pressure 144/70 O2 Sat by Pulse 97 Oximetry General appearance: Present: no acute distress, well-nourished - EENT Eyes: PERRL, EOM intact ENT: hearing intact, clear oral mucosa Ears: bilateral: normal - Neck Neck: supple, normal ROM - Respiratory Respiratory effort: normal Respiratory: bilateral: CTA - Breasts Breasts: normal - Cardiovascular Heart rate: 78 Rhythm: regular Heart Sounds: Present: S1 & S2. Absent: gallop, rub Extremities: pulses intact, No edema, normal color, Full ROM - Gastrointestinal General gastrointestinal: Present: soft, non-tender, non-distended, normal bowel sounds - Genitourinary Female genitourinary: normal - Integumentary Integumentary: clear, warm, dry - Musculoskeletal Musculoskeletal: 1, strength equal bilaterally - Neurologic Neurologic: moves all extremities - Psychiatric Psychiatric: memory intact, appropriate mood/affect, intact judgment & insight - Labs CBC & Chem 7: 02/03/20 09:26 02/06/20 04:25 Labs: Abnormal lab results 02/04/20 02/04/20 02/05/20 Range/Units 16:38 22:23 07:32 POC Glucose 136 H 189 H 121 H (70-105) mg/dL 02/05/20 Range/Units 11:17 POC Glucose 185 H (70-105) mg/dL HEART Score - HEART Score Age: < 45 Risk factors: 1-2 risk factors Troponin: < normal limit
[2020-02-06 05:33] LABS: Alanine Aminotransferase 30 units/L (7-56); Albumin 2.9 g/dL (3.9-5); BUN/Creatinine Ratio 10; Blood Urea Nitrogen 11 mg/dL (7-17); Calcium 8.6 mg/dL (8.4-10.2); Hemolysis Index 0
--- NOTE | 2020-02-06 07:10 | Progress Note ---
Assessment and Plan Cultures: 01/31/2020 blood culture: No growth today Urine culture: E. coli, pansensitive SARS-CoV-2 PCR negative A/P: 34/F with DM, obesity admitted with: #Septic shock: Resolved source likely urinary tract infection, fever resolved #Pneumonia: ?CAP. Repeat chest ray with bibasilar infiltrates. SARS-CoV-2 PCR negative. #Acute hypoxia: Remains on 2 L nasal cannula. Sats dropped to 68% #UTI: UA with significant pyuria. Urine culture grew pansensitive E. coli. #Uncontrolled diabetes mellitus #Morbid obesity BMI 53 #MODESTA: renally dose abx. Recs: -Repeat CRP and procalcitonin -both improving -Obtain transthoracic echo given persistent hypoxia -Consider pulmonary consult given persistent hypoxia -Obtain influenza antigen and PCR -pending -Check HIV test -pending -Continue ceftriaxone -Continue azithromycin -Remove femoral line -Monitor fever Patient reports feeling much better, if clinically improved and oxygenation is not an issue okay to discharge on Levaquin 750 mg p.o. daily total 7 days. Capri Peterson MD [facility] ([facility]) Office [phone] Subjective Date of service: 02/06/20 Principal diagnosis: Sepsis with UTI Interval history: Patient feels better, alert, talking, on room air currently. Objective - Exam Narrative Exam: General appearance: Alert in NAD on room air Eyes: anicteric sclerae, moist conjunctivae; no lid-lag; PERRLA HENT: Normocephalic, Atraumatic; normal external ears, nares open, oropharynx clear Neck: supple, tracheal midline, no JVD Lungs: Diminished breath sounds bilaterally CV: RRR no murmur Abdomen: Soft, non-tender; no masses or hepatosplenomegaly Extremities: no edema, no cyanosis Skin: No rash. Psych: no agitated Neuro: alert and oriented x 3. Moving all extermities - Constitutional Vitals: Vital Signs Temp Pulse Resp BP Pulse Ox 97.7 F 98 H 20 148/80 65 L 02/05/20 21:18 02/05/20 21:18 02/05/20 21:18 02/05/20 21:18 02/05/20 22:00 Temperature -Last 24 Hours Temperature 97.7 F Temperature 99.2 F Temperature 98.9 F - Labs CBC & Chem 7: 02/06/20 06:40 02/06/20 06:40 Labs: Abnormal lab results 02/05/20 02/05/20 02/05/20 Range/Units 07:32 11:17 17:20 Chloride (98-107) mmol/L Glucose (65-100) mg/dL POC Glucose 121 H 185 H 265 H (70-105) mg/dL Albumin (3.9-5) g/dL 02/05/20 02/06/20 Range/Units 21:40 04:25 Chloride 107.3 H (98-107) mmol/L Glucose 112 H (65-100) mg/dL POC Glucose 182 H (70-105) mg/dL Albumin 2.9 L (3.9-5) g/dL
[2020-02-06 07:30] LABS: Hematocrit 28.1 % (30.3-42.9); Mean Corpuscular HGB Conc 32 % (30-34); Mean Corpuscular Volume 77 fl (79-97); Platelet Count 273 K/mm3 (140-440); Red Blood Count 3.66 M/mm3 (3.65-5.03); Red Cell Distribution Width 15.4 % (13.2-15.2)
[2020-02-06] MEDS: INSULIN LISPRO 100 UNIT/ML VIAL 3 mL SUB-Q SCH ×4 (07:30→22:02)
[2020-02-06 07:47] LABS: BUN/Creatinine Ratio 10; Blood Urea Nitrogen 10 mg/dL (7-17); Calcium 8.6 mg/dL (8.4-10.2); Hemolysis Index 0
[2020-02-06] MEDS: INSULIN NPH/REGULAR 70/30 INJ SUB-Q SCH ×2 (08:00→17:00)
--- NOTE | 2020-02-06 08:24 | Progress Note ---
Assessment and Plan Assessment and plan: Sepsis Etiology secondary to pneumonia/UTI. Urine culture grew pansensitive E. coli. Follow-up CRP and procalcitonin. Obtain influenza antigen and PCR. Follow-up HIV test. Continue ceftriaxone and azithromycin. Acute hypoxic respiratory failure Continue O2 to maintain sats greater than 92%. Follow-up echocardiogram to rule out heart failure. Consider pulmonary consultation. Check chest x-ray. Pyelonephritis Clinical picture consistent with acute pyelonephritis Patient started on IV ceftriaxone ID recommendations appreciated ' Sepsis associated hypotension Hypotension resolved T2DM (type 2 diabetes mellitus) Patient initiated on insulin every 4 hours with moderate dose sliding scale protocol Check hemoglobin A1c Medications adjusted Hyponatremia Improved Malnutrition Mild to moderate Dietary supplements requested DVT prophylaxis On heparin and GI prophylaxis History Interval history: No new issues overnight. Hospitalist Physical - Constitutional Vitals: Temp Pulse Resp BP Pulse Ox 97.7 F 98 H 20 148/80 65 L 02/05/20 21:18 02/05/20 21:18 02/05/20 21:18 02/05/20 21:18 02/05/20 22:00 General appearance: Present: no acute distress, well-nourished - EENT Eyes: Present: PERRL, EOM intact ENT: hearing intact, clear oral mucosa, dentition normal - Neck Neck: Present: supple, normal ROM - Respiratory Respiratory effort: normal Respiratory: bilateral: CTA - Cardiovascular Rhythm: regular Heart Sounds: Present: S1 & S2. Absent: gallop, rub - Extremities Extremities: no ischemia, No edema, Full ROM - Abdominal General gastrointestinal: soft, non-tender, non-distended, normal bowel sounds - Integumentary Integumentary: Present: clear, warm, dry - Neurologic Neurologic: CNII-XII intact, moves all extremities HEART Score - HEART Score Age: < 45 Risk factors: 1-2 risk factors Troponin: < normal limit Results - Labs CBC & Chem 7: 02/06/20 06:40 02/06/20 06:40 Labs: Laboratory Last Values WBC 11.2 K/mm3 (4.5-11.0) H 02/06/20 06:40 RBC 3.66 M/mm3 (3.65-5.03) 02/06/20 06:40 Hgb 9.0 gm/dl (10.1-14.3) L 02/06/20 06:40 Hct 28.1 % (30.3-42.9) L 02/06/20 06:40 MCV 77 fl (79-97) L 02/06/20 06:40 MCH 25 pg (28-32) L 02/06/20 06:40 MCHC 32 % (30-34) 02/06/20 06:40 RDW 15.4 % (13.2-15.2) H 02/06/20 06:40 Plt Count 273 K/mm3 (140-440) 02/06/20 06:40 Lymph % (Auto) Tub [place]her 02/06/20 06:40 [place] % (Auto) Tub Washer 02/06/20 06:40 Eos % (Auto) Tub Washer 02/06/20 06:40 Baso % (Auto) Tub Washer 02/06/20 06:40 Lymph # (Auto) Tub Washer 02/06/20 06:40 [place] # (Auto) Tub Washer 02/06/20 06:40 Eos # (Auto) Tub Washer 02/06/20 06:40 Baso # (Auto) Tub Washer 02/06/20 06:40 Add Manual Diff Complete 02/01/20 05:44 Total Counted 200 02/01/20 05:44 Seg Neutrophils % Tub Washer 02/06/20 06:40 Seg Neuts % (Manual) 93.5 % (40.0-70.0) H 02/01/20 05:44 Band Neutrophils % 4.0 % 02/01/20 05:44 Lymphocytes % (Manual) 0.5 % (13.4-35.0) L 02/01/20 05:44 Reactive Lymphs % (Man) 0 % 02/01/20 05:44 Monocytes % (Manual) 2.0 % (0.0-7.3) 02/01/20 05:44 Eosinophils % (Manual) 0 % (0.0-4.3) 02/01/20 05:44 Basophils % (Manual) 0 % (0.0-1.8) 02/01/20 05:44 Metamyelocytes % 0 % 02/01/20 05:44 Myelocytes % 0 % 02/01/20 05:44 Promyelocytes % 0 % 02/01/20 05:44 Blast Cells % 0 % 02/01/20 05:44 Nucleated RBC % 0.5 % (0.0-0.9) 02/01/20 05:44 Seg Neutrophils # Tub Washer 02/06/20 06:40 Seg Neutrophils # Man 18.9 K/mm3 (1.8-7.7) H 02/01/20 05:44 Band Neutrophils # 0.8 K/mm3 02/01/20 05:44 Lymphocytes # (Manual) 0.1 K/mm3 (1.2-5.4) L 02/01/20 05:44 Abs React Lymphs (Man) 0.0 K/mm3 02/01/20 05:44 Monocytes # (Manual) 0.4 K/mm3 (0.0-0.8) 02/01/20 05:44 Eosinophils # (Manual) 0.0 K/mm3 (0.0-0.4) 02/01/20 05:44 Basophils # (Manual) 0.0 K/mm3 (0.0-0.1) 02/01/20 05:44 Metamyelocytes # 0.0 K/mm3 02/01/20 05:44 Myelocytes # 0.0 K/mm3 02/01/20 05:44 Promyelocytes # 0.0 K/mm3 02/01/20 05:44 Blast Cells # 0.0 K/mm3 02/01/20 05:44 WBC Morphology Not Reportable 02/01/20 05:44 Hypersegmented Neuts Not Reportable 02/01/20 05:44 Hyposegmented Neuts Not Reportable 02/01/20 05:44 Hypogranular Neuts Not Reportable 02/01/20 05:44 Smudge Cells Not Reportable 02/01/20 05:44 Toxic Granulation Not Reportable 02/01/20 05:44 Toxic Vacuolation Not Reportable 02/01/20 05:44 Dohle Bodies Not Reportable 02/01/20 05:44 Pelger-Huet Anomaly Not Reportable 02/01/20 05:44 Laz Rods Not Reportable 02/01/20 05:44 Platelet Estimate Consistent w auto 02/01/20 05:44 Clumped Platelets Not Reportable 02/01/20 05:44 Plt Clumps, EDTA Not Reportable 02/01/20 05:44 Large Platelets Not Reportable 02/01/20 05:44 Giant Platelets Not Reportable 02/01/20 05:44 Platelet Satelliting Not Reportable 02/01/20 05:44 Plt Morphology Comment Not Reportable 02/01/20 05:44 RBC Morphology Not Reportable 02/01/20 05:44 Dimorphic RBCs Not Reportable 02/01/20 05:44 Polychromasia Not Reportable 02/01/20 05:44 Hypochromasia Not Reportable 02/01/20 05:44 Poikilocytosis Not Reportable 02/01/20 05:44 Anisocytosis 1+ 02/01/20 05:44 Microcytosis Not Reportable 02/01/20 05:44 Macrocytosis Not Reportable 02/01/20 05:44 Spherocytes Not Reportable 02/01/20 05:44 Pappenheimer Bodies Not Reportable 02/01/20 05:44 Sickle Cells Not Reportable 02/01/20 05:44 Target Cells Not Reportable 02/01/20 05:44 Tear Drop Cells Not Reportable 02/01/20 05:44 Ovalocytes Not Reportable 02/01/20 05:44 Helmet Cells Not Reportable 02/01/20 05:44 [place] Bodies Not Reportable 02/01/20 05:44 [place] Rings Not Reportable 02/01/20 05:44 [place] Cells Not Reportable 02/01/20 05:44 Bite Cells Not Reportable 02/01/20 05:44 Crenated Cell Not Reportable 02/01/20 05:44 Elliptocytes Not Reportable 02/01/20 05:44 Acanthocytes (Spur) Not Reportable 02/01/20 05:44 Rouleaux Not Reportable 02/01/20 05:44 Hemoglobin C Crystals Not Reportable 02/01/20 05:44 Schistocytes Not Reportable 02/01/20 05:44 Malaria parasites Not Reportable 02/01/20 05:44 Evgeny Bodies Not Reportable 02/01/20 05:44 Hem Pathologist Commnt No 02/01/20 05:44 D-Dimer 2311.17 ng/mlDDU (0-234) H 02/03/20 22:31 VBG pH 7.376 (7.320-7.420) 01/31/20 17:48 Sodium 140 mmol/L (137-145) 02/06/20 06:40 Potassium 3.6 mmol/L (3.6-5.0) 02/06/20 06:40 Chloride 105.7 mmol/L (98-107) 02/06/20 06:40 Carbon Dioxide 26 mmol/L (22-30) 02/06/20 06:40 Anion Gap 12 mmol/L 02/06/20 06:40 BUN 10 mg/dL (7-17) 02/06/20 06:40 Creatinine 1.0 mg/dL (0.6-1.2) 02/06/20 06:40 Estimated GFR > 60 ml/min 02/06/20 06:40 BUN/Creatinine Ratio 10 % 02/06/20 06:40 Glucose 112 mg/dL (65-100) H 02/06/20 06:40 POC Glucose 107 mg/dL (70-105) H 02/06/20 07:38 Hemoglobin A1c 12.5 % (4-6) H 02/01/20 05:44 Lactic Acid 1.80 mmol/L (0.7-2.0) 02/01/20 05:44 Calcium 8.6 mg/dL (8.4-10.2) 02/06/20 06:40 Ferritin 137.7 ng/mL (10.0-200.0) 02/03/20 22:31 Total Bilirubin 0.20 mg/dL (0.1-1.2) 02/06/20 04:25 AST 29 units/L (5-40) 02/06/20 04:25 ALT 30 units/L (7-56) 02/06/20 04:25 Alkaline Phosphatase 116 units/L (35-129) 02/06/20 04:25 Lactate Dehydrogenase 265 units/L (91-180) H 02/03/20 22:31 C-Reactive Protein 15.90 mg/dL (0.00-1.30) H 02/06/20 06:40 Total Protein 6.6 g/dL (6.3-8.2) 02/06/20 04:25 Albumin 2.9 g/dL (3.9-5) L 02/06/20 04:25 Albumin/Globulin Ratio 0.8 % 02/06/20 04:25 Procalcitonin 7.77 ng/mL (<0.15) 02/03/20 22:31 HCG, Qual Negative (Negative) 01/31/20 16:20 Urine Color Red (Yellow) 01/31/20 19:00 Urine Turbidity Cloudy (Clear) 01/31/20 19:00 Urine pH 6.0 (5.0-7.0) 01/31/20 19:00 Ur Specific [place] 1.027 (1.003-1.030) 01/31/20 19:00 Urine Protein 100 mg/dl mg/dL (Negative) 01/31/20 19:00 Urine Glucose (UA) >=500 mg/dL (Negative) 01/31/20 19:00 Urine Ketones Tr mg/dL (Negative) 01/31/20 19:00 Urine Blood Mod (Negative) 01/31/20 19:00 Urine Nitrite Pos (Negative) 01/31/20 19:00 Urine Bilirubin Neg (Negative) 01/31/20 19:00 Urine Urobilinogen < 2.0 mg/dL (<2.0) 01/31/20 19:00 Ur Leukocyte Esterase Neg (Negative) 01/31/20 19:00 Urine WBC (Auto) > 182.0 /HPF (0.0-6.0) H 01/31/20 19:00 Urine RBC (Auto) > 182.0 /HPF (0.0-6.0) 01/31/20 19:00 U Epithel Cells (Auto) 6.0 /HPF (0-13.0) 01/31/20 19:00 Coronavirus (PCR) Negative (Negative) 02/04/20 Unknown Microbiology: Microbiology 01/31/20 16:29 Peripheral/Venous Blood Culture - Final NO GROWTH AFTER 5 DAYS 01/31/20 16:20 Peripheral/Venous Blood Culture - Final NO GROWTH AFTER 5 DAYS Arce/IV: Voiding Method Toilet IV Catheter Type [Right Mid-line Antecubital] IV Catheter Type [Left Forearm INT / Saline Lock ] IV Catheter Type [Right Hand] INT / Saline Lock IV Catheter Type [Right INT / Saline Lock Forearm] IV Catheter Type [Left Hand] INT / Saline Lock Active Medications - Current Medications Current Medications: Generic Name Dose Route Start Last Admin Trade Name Freq PRN Reason Stop Dose Admin Acetaminophen 650 mg 02/01/20 05:35 02/05/20 02:54 Tylenol PO 650 mg Q4H PRN Administration Pain MILD(1-3)/Fever >100.5/LOVE Dextrose 50 ml 02/02/20 09:22 D50w (25gm) Syringe IV Q30MIN PRN Hypoglycemia Protocol Famotidine 20 mg 02/04/20 22:00 02/05/20 23:05 Pepcid PO 20 mg BID DAYANA Administration Heparin Sodium (Porcine) 5,000 unit 02/01/20 10:00 02/05/20 23:06 Heparin SUB-Q 5,000 unit Q12HR DAYANA Administration Ceftriaxone Sodium 2 gm in 100 mls @ 200 mls/hr 02/03/20 12:00 02/05/20 15:21 Rocephin/Ns 2 Gm/100 Ml IV 200 mls/hr Q24HR DAYANA Administration Protocol Azithromycin 500 mg/ Sodium 250 mls @ 250 mls/hr 02/04/20 12:00 02/05/20 15:22 Chloride IV 250 mls/hr Q24HR DAYANA Administration Protocol Insulin Human Isoph/Insulin Regular 35 unit 02/06/20 08:00 Humulin 70/30 SUB-Q BIDDIAB DAYANA Insulin Human Lispro 0 unit 02/03/20 22:00 02/05/20 23:10 Humalog SUB-Q 2 unit ACHS DAYANA Administration Protocol Losartan Potassium 50 mg 02/03/20 10:00 02/05/20 09:45 Cozaar PO 50 mg QDAY DAYANA Administration Ondansetron HCl 4 mg 02/01/20 05:35 02/02/20 13:47 Zofran IV 4 mg Q8H PRN Administration Nausea And Vomiting Oxycodone/Acetaminophen 1 tab 02/01/20 05:35 02/03/20 21:54 Percocet 5/325 PO 1 tab Q6H PRN Administration Pain, Moderate (4-6) Sodium Chloride 10 ml 02/01/20 10:00 02/05/20 23:13 Sodium Chloride Flush Syringe 10 Ml IV 10 ml BID DAYANA Administration Sodium Chloride 10 ml 02/01/20 05:35 Sodium Chloride Flush Syringe 10 Ml IV PRN PRN LINE FLUSH Nutrition/Malnutrition Assess - Dietary Evaluation Nutrition/Malnutrition Findings: Nutrition Notes Start: 02/01/20 10:56 Freq: Status: Active Protocol: Document 02/05/20 13:10 SAMSON (Rec: 02/05/20 13:18 SAMSON [id number]) Co-Sign 02/05/20 13:10 [place] Nutrition Notes Initial or Follow up Reassessment Current Diagnosis Diabetes,Sepsis Other Pertinent Diagnosis Pyelonephritis Current Diet Cardiac Labs/Tests 02/02 Cr 1.4 BG 235 Pertinent Medications Humalog Humulin Height 5 ft 9 in Weight 163.293 kg [place] Body Weight (kg) 65.90 BMI 53.1 Intake Prior to Admission Good Weight Status Morbidly Obese Subjective/Other Information F/U for intakes and diet advancement. Pt reports 25% intakes, decreased appetite continues. Pt did not receive ONS. Percent of energy/protein needs met: 28%/23% Burn Absent Trauma Absent GI Symptoms None Current % PO Poor (25-49%) Minimum of two criteria No physical signs of malnutrition #2 Nutrition Diagnosis Food and nutrition-related knowledge deficit As Evidenced by Signs and Symptoms Pt had no questions Diagnosis Progress(for reassessment Resolved documentation) #1 Nutrition Diagnosis Inadequate oral intake As Evidenced by Signs and Symptoms pt consuming 25% meals Diagnosis Progress(for reassessment Improved documentation) Is patient on ventilator? No Is Patient Ambulatory and/or Out of Bed Yes REE-([facility]-ambulatory/OOB) [ 3103.503 [id number]] Kcal/Kg value to use for calculation 12 Approximate Energy Requirements Using 1960 kcal/Kg Calculation Used for Recommendations Kcal/kg Additional Notes Protein: 91-114g (0.8-1g/kg using AdjBW 114kg) Fluid: 1ml/kcal Nutrition Intervention Change Diet Order: Cardiac/consistent CHO Add Supplement/Snack (indicate name/kcal Glucerna Hardy BID /protein ) Provides kCal: 440 Provides Protein (gm) 20 Goal #1 Diet tolerance Goal #2 Meet at least 75% energy and protein needs Anticipated Discharge Needs: Cardiac/Consistent CHO Follow-Up By: 02/07/20 Additional Comments F/U for diet tolerance and intakes
[2020-02-06] MEDS: ONDANSETRON 4 MG/2 ML INJ IV PRN (08:48)
[2020-02-06] MEDS: AZITHROMYCIN 500 MG in SODIUM CHLORIDE 0.9% 250ML 250 ML IV SCH (09:45)
[2020-02-06] MEDS: FAMOTIDINE 20 MG TAB PO SCH ×2 (09:45→22:03)
[2020-02-06] MEDS: cefTRIAXone/NS 2 GM/100 ML 2 GM/100 ML BAG IV SCH (09:45)
[2020-02-06] MEDS: LOSARTAN 50 MG TAB PO SCH (09:45)
[2020-02-06] MEDS: HEPARIN 5,000 UNIT/1 ML VIAL SUB-Q SCH ×2 (09:46→22:02)
[2020-02-06 10:47] LABS: Band Neutrophils # (Manual) 0.1 K/mm3; Basophils % (Manual) 0 % (0.0-1.8); Hypochromasia 1+; Myelocytes # (Manual) 0.1 K/mm3; Total Cells Counted 100
[2020-02-06 10:48] LABS: Platelet Clumps Rare; Platelet Estimate Consistent w Auto
[2020-02-06] MEDS: oxyCODONE /ACETAMINOPHEN 5-325MG TAB PO PRN (19:13)
[2020-02-07] MEDS: ONDANSETRON 4 MG/2 ML INJ IV PRN ×2 (02:56→10:52)
[2020-02-07 06:29] LABS: Hematocrit 27.2 % (30.3-42.9); Hemoglobin 8.8 gm/dl (10.1-14.3); Mean Corpuscular HGB Conc 33 % (30-34); Mean Corpuscular Volume 77 fl (79-97); Platelet Count 295 K/mm3 (140-440); Red Blood Count 3.54 M/mm3 (3.65-5.03); Red Cell Distribution Width 15.2 % (13.2-15.2)
[2020-02-07 06:54] LABS: BUN/Creatinine Ratio 11; Blood Urea Nitrogen 11 mg/dL (7-17); Hemolysis Index 0
[2020-02-07] MEDS: INSULIN LISPRO 100 UNIT/ML VIAL 3 mL SUB-Q SCH ×4 (07:30→21:25)
[2020-02-07 07:53] LABS: Total Cells Counted 100
[2020-02-07 07:54] LABS: Basophils % (Manual) 0 % (0.0-1.8); Hypochromasia 1+; Platelet Estimate Consistent w Auto; Target Cells 1+
[2020-02-07] MEDS: INSULIN NPH/REGULAR 70/30 INJ SUB-Q SCH ×2 (08:00→17:57)
--- NOTE | 2020-02-07 09:16 | Progress Note ---
Assessment and Plan Assessment and plan: Sepsis Etiology secondary to pneumonia/UTI. Urine culture grew pansensitive E. coli. Follow-up CRP and procalcitonin. Obtain influenza antigen and PCR. Follow-up HIV test. Continue ceftriaxone and azithromycin. Acute hypoxic respiratory failure Continue O2 to maintain sats greater than 92%. Follow-up echocardiogram to rule out heart failure. Consider pulmonary consultation. Check chest x-ray. Pyelonephritis Clinical picture consistent with acute pyelonephritis Patient started on IV ceftriaxone ID recommendations appreciated ' Bilateral pneumonia Chest x-ray reveals bilateral lower lobe opacities. Covid negative T2DM (type 2 diabetes mellitus) Patient initiated on insulin every 4 hours with moderate dose sliding scale protocol Check hemoglobin A1c Medications adjusted Hyponatremia Improved Malnutrition Mild to moderate Dietary supplements requested DVT prophylaxis On heparin and GI prophylaxis 02/07/2020. Echocardiogram reveals left ventricular systolic function that is normal with a EF of 60 to 65%. Mild concentric left ventricular hypertrophy. Right ventricular systolic pressure is 31 mmHg (mild pulmonary hypertension). Procalcitonin normal but C-reactive protein elevated. Follow-up repeat chest x- ray. Continue antibiotics per ID recommendations History Interval history: No new issues overnight. Hospitalist Physical - Constitutional Vitals: Temp Pulse Resp BP Pulse Ox 98.0 F 92 H 20 151/96 97 02/07/20 05:13 02/07/20 05:13 02/07/20 05:13 02/07/20 05:13 02/07/20 05:13 General appearance: Present: no acute distress, well-nourished - EENT Eyes: Present: PERRL, EOM intact ENT: hearing intact, clear oral mucosa, dentition normal - Neck Neck: Present: supple, normal ROM - Respiratory Respiratory effort: normal Respiratory: bilateral: CTA - Cardiovascular Rhythm: regular Heart Sounds: Present: S1 & S2. Absent: gallop, rub - Extremities Extremities: no ischemia, No edema, Full ROM - Abdominal General gastrointestinal: soft, non-tender, non-distended, normal bowel sounds - Integumentary Integumentary: Present: clear, warm, dry - Neurologic Neurologic: CNII-XII intact, moves all extremities HEART Score - HEART Score Age: < 45 Risk factors: 1-2 risk factors Troponin: < normal limit Results - Labs CBC & Chem 7: 02/07/20 04:58 02/07/20 04:58 Labs: Laboratory Last Values WBC 10.6 K/mm3 (4.5-11.0) 02/07/20 04:58 RBC 3.54 M/mm3 (3.65-5.03) L 02/07/20 04:58 Hgb 8.8 gm/dl (10.1-14.3) L 02/07/20 04:58 Hct 27.2 % (30.3-42.9) L 02/07/20 04:58 MCV 77 fl (79-97) L 02/07/20 04:58 MCH 25 pg (28-32) L 02/07/20 04:58 MCHC 33 % (30-34) 02/07/20 04:58 RDW 15.2 % (13.2-15.2) 02/07/20 04:58 Plt Count 295 K/mm3 (140-440) 02/07/20 04:58 Lymph % (Auto) Educational Sign Language Interpreter 02/06/20 06:40 Chase % (Auto) Educational Sign Language Interpreter 02/06/20 06:40 Eos % (Auto) Educational Sign Language Interpreter 02/06/20 06:40 Baso % (Auto) Educational Sign Language Interpreter 02/06/20 06:40 Lymph # (Auto) Educational Sign Language Interpreter 02/06/20 06:40 Chase # (Auto) Educational Sign Language Interpreter 02/06/20 06:40 Eos # (Auto) Educational Sign Language Interpreter 02/06/20 06:40 Baso # (Auto) Educational Sign Language Interpreter 02/06/20 06:40 Add Manual Diff Complete 02/07/20 04:58 Total Counted 100 02/07/20 04:58 Seg Neutrophils % Educational Sign Language Interpreter 02/06/20 06:40 Seg Neuts % (Manual) 82.0 % (40.0-70.0) H 02/07/20 04:58 Band Neutrophils % 0 % 02/07/20 04:58 Lymphocytes % (Manual) 9.0 % (13.4-35.0) L 02/07/20 04:58 Reactive Lymphs % (Man) 0 % 02/07/20 04:58 Monocytes % (Manual) 5.0 % (0.0-7.3) 02/07/20 04:58 Eosinophils % (Manual) 1.0 % (0.0-4.3) 02/07/20 04:58 Basophils % (Manual) 0 % (0.0-1.8) 02/07/20 04:58 Metamyelocytes % 3.0 % 02/07/20 04:58 Myelocytes % 0 % 02/07/20 04:58 Promyelocytes % 0 % 02/07/20 04:58 Blast Cells % 0 % 02/07/20 04:58 Nucleated RBC % 1.0 % (0.0-0.9) H 02/07/20 04:58 Seg Neutrophils # Educational Sign Language Interpreter 02/06/20 06:40 Seg Neutrophils # Man 8.7 K/mm3 (1.8-7.7) H 02/07/20 04:58 Band Neutrophils # 0.0 K/mm3 02/07/20 04:58 Lymphocytes # (Manual) 1.0 K/mm3 (1.2-5.4) L 02/07/20 04:58 Abs React Lymphs (Man) 0.0 K/mm3 02/07/20 04:58 Monocytes # (Manual) 0.5 K/mm3 (0.0-0.8) 02/07/20 04:58 Eosinophils # (Manual) 0.1 K/mm3 (0.0-0.4) 02/07/20 04:58 Basophils # (Manual) 0.0 K/mm3 (0.0-0.1) 02/07/20 04:58 Metamyelocytes # 0.3 K/mm3 02/07/20 04:58 Myelocytes # 0.0 K/mm3 02/07/20 04:58 Promyelocytes # 0.0 K/mm3 02/07/20 04:58 Blast Cells # 0.0 K/mm3 02/07/20 04:58 WBC Morphology Not Reportable 02/07/20 04:58 Hypersegmented Neuts Not Reportable 02/07/20 04:58 Hyposegmented Neuts Not Reportable 02/07/20 04:58 Hypogranular Neuts Not Reportable 02/07/20 04:58 Smudge Cells Not Reportable 02/07/20 04:58 Toxic Granulation Not Reportable 02/07/20 04:58 Toxic Vacuolation Not Reportable 02/07/20 04:58 Dohle Bodies Not Reportable 02/07/20 04:58 Pelger-Huet Anomaly Not Reportable 02/07/20 04:58 Laz Rods Not Reportable 02/07/20 04:58 Platelet Estimate Consistent w auto 02/07/20 04:58 Clumped Platelets Not Reportable 02/07/20 04:58 Plt Clumps, EDTA Not Reportable 02/07/20 04:58 Large Platelets Not Reportable 02/07/20 04:58 Giant Platelets Not Reportable 02/07/20 04:58 Platelet Satelliting Not Reportable 02/07/20 04:58 Plt Morphology Comment Not Reportable 02/07/20 04:58 RBC Morphology Not Reportable 02/07/20 04:58 Dimorphic RBCs Not Reportable 02/07/20 04:58 Polychromasia Not Reportable 02/07/20 04:58 Hypochromasia 1+ 02/07/20 04:58 Poikilocytosis Not Reportable 02/07/20 04:58 Anisocytosis Not Reportable 02/07/20 04:58 Microcytosis Not Reportable 02/07/20 04:58 Macrocytosis Not Reportable 02/07/20 04:58 Spherocytes Not Reportable 02/07/20 04:58 Pappenheimer Bodies Not Reportable 02/07/20 04:58 Sickle Cells Not Reportable 02/07/20 04:58 Target Cells 1+ 02/07/20 04:58 Tear Drop Cells Not Reportable 02/07/20 04:58 Ovalocytes Not Reportable 02/07/20 04:58 Helmet Cells Not Reportable 02/07/20 04:58 [place] Bodies Not Reportable 02/07/20 04:58 [place] Rings Not Reportable 02/07/20 04:58 Jinny Cells Not Reportable 02/07/20 04:58 Bite Cells Not Reportable 02/07/20 04:58 Crenated Cell Not Reportable 02/07/20 04:58 Elliptocytes Not Reportable 02/07/20 04:58 Acanthocytes (Spur) Not Reportable 02/07/20 04:58 Rouleaux Not Reportable 02/07/20 04:58 Hemoglobin C Crystals Not Reportable 02/07/20 04:58 Schistocytes Not Reportable 02/07/20 04:58 Malaria parasites Not Reportable 02/07/20 04:58 Evgeny Bodies Not Reportable 02/07/20 04:58 Hem Pathologist Commnt No 02/07/20 04:58 D-Dimer 2311.17 ng/mlDDU (0-234) H 02/03/20 22:31 VBG pH 7.376 (7.320-7.420) 01/31/20 17:48 Sodium 142 mmol/L (137-145) 02/07/20 04:58 Potassium 3.7 mmol/L (3.6-5.0) 02/07/20 04:58 Chloride 106.9 mmol/L (98-107) 02/07/20 04:58 Carbon Dioxide 26 mmol/L (22-30) 02/07/20 04:58 Anion Gap 13 mmol/L 02/07/20 04:58 BUN 11 mg/dL (7-17) 02/07/20 04:58 Creatinine 1.0 mg/dL (0.6-1.2) 02/07/20 04:58 Estimated GFR > 60 ml/min 02/07/20 04:58 BUN/Creatinine Ratio 11 % 02/07/20 04:58 Glucose 109 mg/dL (65-100) H 02/07/20 04:58 POC Glucose 151 mg/dL (70-105) H 02/07/20 07:30 Hemoglobin A1c 12.5 % (4-6) H 02/01/20 05:44 Lactic Acid 1.80 mmol/L (0.7-2.0) 02/01/20 05:44 Calcium 9.0 mg/dL (8.4-10.2) 02/07/20 04:58 Ferritin 137.7 ng/mL (10.0-200.0) 02/03/20 22:31 Total Bilirubin 0.20 mg/dL (0.1-1.2) 02/06/20 04:25 AST 29 units/L (5-40) 02/06/20 04:25 ALT 30 units/L (7-56) 02/06/20 04:25 Alkaline Phosphatase 116 units/L (35-129) 02/06/20 04:25 Lactate Dehydrogenase 265 units/L (91-180) H 02/03/20 22:31 C-Reactive Protein 15.90 mg/dL (0.00-1.30) H 02/06/20 06:40 Total Protein 6.6 g/dL (6.3-8.2) 02/06/20 04:25 Albumin 2.9 g/dL (3.9-5) L 02/06/20 04:25 Albumin/Globulin Ratio 0.8 % 02/06/20 04:25 Procalcitonin 2.51 ng/mL (<0.15) 02/06/20 07:13 HCG, Qual Negative (Negative) 01/31/20 16:20 Urine Color Red (Yellow) 01/31/20 19:00 Urine Turbidity Cloudy (Clear) 01/31/20 19:00 Urine pH 6.0 (5.0-7.0) 01/31/20 19:00 Ur Specific [place] 1.027 (1.003-1.030) 01/31/20 19:00 Urine Protein 100 mg/dl mg/dL (Negative) 01/31/20 19:00 Urine Glucose (UA) >=500 mg/dL (Negative) 01/31/20 19:00 Urine Ketones Tr mg/dL (Negative) 01/31/20 19:00 Urine Blood Mod (Negative) 01/31/20 19:00 Urine Nitrite Pos (Negative) 01/31/20 19:00 Urine Bilirubin Neg (Negative) 01/31/20 19:00 Urine Urobilinogen < 2.0 mg/dL (<2.0) 01/31/20 19:00 Ur Leukocyte Esterase Neg (Negative) 01/31/20 19:00 Urine WBC (Auto) > 182.0 /HPF (0.0-6.0) H 01/31/20 19:00 Urine RBC (Auto) > 182.0 /HPF (0.0-6.0) 01/31/20 19:00 U Epithel Cells (Auto) 6.0 /HPF (0-13.0) 01/31/20 19:00 Coronavirus (PCR) Negative (Negative) 02/04/20 Unknown - Diagnostic Impressions Diagnostic Impressions: Echocardiogram 02/06/20 07:11 Transthoracic Echocardiogram Indication: Hypoxia BP: 148/80 HR: 93 Conclusions *Global left ventricular systolic function is normal. *The estimated ejection fraction is 60-65%. *Mild concentric left ventricular hypertrophy is observed. *There is trace of aortic regurgitation. *There is trace of mitral regurgitation. *There is trace tricuspid regurgitation. *There is evidence of mild pulmonary hypertension. *The right ventricular systolic pressure is calculated at 31 mmHg. Findings Left Ventricle: The left ventricular chamber size is normal. Mild concentric left ventricular hypertrophy is observed. Global left ventricular systolic function is normal. The estimated ejection fraction is 60-65%. Left Atrium: The left atrial chamber size is normal. Right Ventricle: The right ventricle is slightly dilated. The right ventricular global systolic function is normal. Right Atrium: The right atrial cavity size is normal. Aortic Valve: The aortic valve leaflets are mildly thickened. There is trace of aortic regurgitation. There is no evidence of aortic stenosis. Mitral Valve: The mitral valve leaflets are mildly thickened. There is trace of mitral regurgitation. There is no evidence of mitral stenosis. Tricuspid Valve: There is trace tricuspid regurgitation. The right ventricular systolic pressure is calculated at 31 mmHg. There is evidence of mild pulmonary hypertension. Pericardium: There is no pericardial effusion. Aorta: There is no dilatation of the ascending aorta. There is no dilatation of the aortic root. Venous: The inferior vena cava appears normal in size. Measurements Chambers 2D Name Value Normal Range IVSd (2D) 1.09 cm (0.6 - 1.1) LVPWd (2D) 1.03 cm (0.6 - 1.1) LVIDd (2D) 4.52 cm (3.7 - 5.6) LVIDs (2D) 3.08 cm (2 - 3.8) LV FS (2D) 31.7 % - EF Teichholz (2D) 59.82 % - Ao root diameter (2D) 2.76 cm (2 - 3.7) Volumes/Mass Name Value Normal Range LA ESV SP 4CH (A/L) 34.78 ml - LA ESV SP 2CH (A/L) 25.37 ml - LA ESV BP (A/L) 30.38 ml - LA ESV BP (A/L) index 11.46 ml/m2 - LA ESV SP 4CH (MOD) 33.28 ml - LA ESV SP 2CH (MOD) 24.58 ml - LA ESV BP (MOD) 29.17 ml - LA ESV BP (MOD) index 11.01 ml/m2 - Diastolic/Systolic Function Name Value Normal Range MV E-wave Vmax 1.35 m/sec - MV deceleration time 194.34 msec - MV A-wave Vmax 0.97 m/sec - MV A-wave duration 144.62 msec - MV E:A ratio 1.39 ratio - Aortic Valve Name Value Normal Range AV Vmax 1.86 m/sec - AV VTI 33.95 cm - AV peak gradient 13.86 mmHg - AV mean gradient 7.05 mmHg - LVOT diameter 2.09 cm - LVOT Vmax 1.42 m/sec - LVOT VTI 27.93 cm - LVOT peak gradient 8.07 mmHg - LVOT mean gradient 4.31 mmHg - SV LVOT 95.89 ml - RICHARD (continuity Vmax) 2.62 cm2 - RICHARD (continuity VTI) 2.82 cm2 - Ascending Ao 2.73 cm - Mitral Valve Name Value Normal Range MV Vmax 1.39 m/sec - MV VTI 29 cm - MV peak gradient 7.7 mmHg - MV mean gradient 3.47 mmHg - MV PHT 56.64 msec - MVA (PHT) 3.88 cm2 - MVA (continuity VTI) 3.31 cm2 - Tricuspid Valve Name Value Normal Range TR Vmax 2.68 m/sec - TR peak gradient 28 mmHg - RAP 3 mmHg - RVSP 31 mmHg - Pulmonic Valve/Qp:Qs Name Value Normal Range PV Vmax 1.39 m/sec - PV peak gradient 7.73 mmHg - Arce/IV: Voiding Method Toilet IV Catheter Type [Right Mid-line Antecubital] IV Catheter Type [Left Forearm INT / Saline Lock ] IV Catheter Type [Right Hand] INT / Saline Lock IV Catheter Type [Right INT / Saline Lock Forearm] IV Catheter Type [Left Hand] INT / Saline Lock Active Medications - Current Medications Current Medications: Generic Name Dose Route Start Last Admin Trade Name Freq PRN Reason Stop Dose Admin Acetaminophen 650 mg 02/01/20 05:35 02/05/20 02:54 Tylenol PO 650 mg Q4H PRN Administration Pain MILD(1-3)/Fever >100.5/LOVE Azithromycin 500 mg 02/07/20 10:00 Zithromax PO QDAY DAYANA Dextrose 50 ml 02/02/20 09:22 D50w (25gm) Syringe IV Q30MIN PRN Hypoglycemia Protocol Famotidine 20 mg 02/04/20 22:00 02/06/20 22:03 Pepcid PO 20 mg BID DAYANA Administration Heparin Sodium (Porcine) 5,000 unit 02/01/20 10:00 02/06/20 22:02 Heparin SUB-Q 5,000 unit Q12HR DAYANA Administration Ceftriaxone Sodium 2 gm in 100 mls @ 200 mls/hr 02/03/20 12:00 02/06/20 09:45 Rocephin/Ns 2 Gm/100 Ml IV 200 mls/hr Q24HR DAYANA Administration Protocol Insulin Human Isoph/Insulin Regular 35 unit 02/06/20 08:00 02/06/20 17:00 Humulin 70/30 SUB-Q 35 unit BIDDIAB DAYANA Administration Insulin Human Lispro 0 unit 02/03/20 22:00 02/06/20 22:02 Humalog SUB-Q 3 unit ACHS DAYANA Administration Protocol Losartan Potassium 50 mg 02/03/20 10:00 02/06/20 09:45 Cozaar PO 50 mg QDAY DAYANA Administration Ondansetron HCl 4 mg 02/01/20 05:35 02/07/20 02:56 Zofran IV 4 mg Q8H PRN Administration Nausea And Vomiting Oxycodone/Acetaminophen 1 tab 02/01/20 05:35 02/06/20 19:13 Percocet 5/325 PO 1 tab Q6H PRN Administration Pain, Moderate (4-6) Sodium Chloride 10 ml 02/01/20 10:00 02/06/20 22:03 Sodium Chloride Flush Syringe 10 Ml IV 10 ml BID DAYANA Administration Sodium Chloride 10 ml 02/01/20 05:35 Sodium Chloride Flush Syringe 10 Ml IV PRN PRN LINE FLUSH Nutrition/Malnutrition Assess - Dietary Evaluation Nutrition/Malnutrition Findings: Nutrition Notes Start: 02/01/20 10:56 Freq: Status: Active Protocol: Document 02/05/20 13:10 SAMSON (Rec: 02/05/20 13:18 SAMSON [id number]) Co-Sign 02/05/20 13:10 Nutrition Notes Initial or Follow up Reassessment Current Diagnosis Diabetes,Sepsis Other Pertinent Diagnosis Pyelonephritis Current Diet Cardiac Labs/Tests 02/02 Cr 1.4 BG 235 Pertinent Medications Humalog Humulin Height 5 ft 9 in Weight 163.293 kg [place] Body Weight (kg) 65.90 BMI 53.1 Intake Prior to Admission Good Weight Status Morbidly Obese Subjective/Other Information F/U for intakes and diet advancement. Pt reports 25% intakes, decreased appetite continues. Pt did not receive ONS. Percent of energy/protein needs met: 28%/23% Burn Absent Trauma Absent GI Symptoms None Current % PO Poor (25-49%) Minimum of two criteria No physical signs of malnutrition #2 Nutrition Diagnosis Food and nutrition-related knowledge deficit As Evidenced by Signs and Symptoms Pt had no questions Diagnosis Progress(for reassessment Resolved documentation) #1 Nutrition Diagnosis Inadequate oral intake As Evidenced by Signs and Symptoms pt consuming 25% meals Diagnosis Progress(for reassessment Improved documentation) Is patient on ventilator? No Is Patient Ambulatory and/or Out of Bed Yes [facility] [ 3103.503 NUTR.[id number]] Kcal/Kg value to use for calculation 12 Approximate Energy Requirements Using 1960 kcal/Kg Calculation Used for Recommendations Kcal/kg Additional Notes Protein: 91-114g (0.8-1g/kg using AdjBW 114kg) Fluid: 1ml/kcal Nutrition Intervention Change Diet Order: Cardiac/consistent CHO Add Supplement/Snack (indicate name/kcal Glucerna [place] BID /protein ) Provides kCal: 440 Provides Protein (gm) 20 Goal #1 Diet tolerance Goal #2 Meet at least 75% energy and protein needs Anticipated Discharge Needs: Cardiac/Consistent CHO Follow-Up By: 02/07/20 Additional Comments F/U for diet tolerance and intakes
[2020-02-07] MEDS ORDERED: AZITHROMYCIN 250 MG TAB PO SCH (10:00)
--- NOTE | 2020-02-07 10:25 | Progress Note ---
Assessment and Plan Cultures: 01/31/2020 blood culture: No growth today Urine culture: E. coli, pansensitive SARS-CoV-2 PCR negative A/P: 34/F with DM, obesity admitted with: #Septic shock: Resolved source likely urinary tract infection, fever resolved #Pneumonia: ?CAP. Repeat chest ray with bibasilar infiltrates. SARS-CoV-2 PCR negative. #Acute hypoxia: Remains on 2 L nasal cannula. Sats dropped to 68%. EF 60% ?pulmonary hypertension #UTI: UA with significant pyuria. Urine culture grew pansensitive E. coli. #Uncontrolled diabetes mellitus #Morbid obesity BMI 53 #MODESTA: renally dose abx. Recs: -Pulmonary referral for hypoxia/pulmonary hypertension? -CRP and procalcitonin -both improving -Obtain influenza antigen and PCR -pending -Check HIV test -pending -Continue ceftriaxone and azithromycin - stop after today day 5 -Start Levaquin 750 mg p.o. daily total 7 days until 02/08 -Monitor fever Okay to discharge from ID standpoint Capri Peterson MD [facility] ([facility]) Office [phone] Subjective Date of service: 02/07/20 Principal diagnosis: Sepsis with UTI Interval history: Patient feels better, still with dyspnea on exertion, remains on 2 L nasal cannula Objective - Exam Narrative Exam: General appearance: Alert in NAD on room air morbidly obese Eyes: anicteric sclerae, moist conjunctivae; no lid-lag; PERRLA HENT: Normocephalic, Atraumatic; normal external ears, nares open, oropharynx clear Neck: supple, tracheal midline, no JVD Lungs: Diminished breath sounds bilaterally CV: RRR no murmur Abdomen: Soft, non-tender; morbidly obese Extremities: no edema, no cyanosis Skin: No rash. Psych: no agitated Neuro: alert and oriented x 3. Moving all extermities - Constitutional Vitals: Vital Signs Temp Pulse Resp BP Pulse Ox 98.0 F 92 H 20 151/96 97 02/07/20 05:13 02/07/20 05:13 02/07/20 05:13 02/07/20 05:13 02/07/20 05:13 Temperature -Last 24 Hours Temperature 98.0 F Temperature 98.0 F Temperature 97.1 F Temperature 98.6 F - Labs CBC & Chem 7: 02/07/20 04:58 02/07/20 04:58 Labs: Abnormal lab results 02/06/20 02/06/20 02/06/20 Range/Units 06:40 12:33 17:04 RBC (3.65-5.03) M/mm3 Hgb (10.1-14.3) gm/dl Hct (30.3-42.9) % MCV (79-97) fl MCH (28-32) pg Seg Neuts % (Manual) (40.0-70.0) % Lymphocytes % (Manual) (13.4-35.0) % Monocytes % (Manual) 8.0 H (0.0-7.3) % Nucleated RBC % (0.0-0.9) % Seg Neutrophils # Man 7.8 H (1.8-7.7) K/mm3 Lymphocytes # (Manual) (1.2-5.4) K/mm3 Monocytes # (Manual) 0.9 H (0.0-0.8) K/mm3 Glucose (65-100) mg/dL POC Glucose 143 H 192 H (70-105) mg/dL 02/06/20 02/07/20 02/07/20 Range/Units 21:58 04:58 04:58 RBC 3.54 L (3.65-5.03) M/mm3 Hgb 8.8 L (10.1-14.3) gm/dl Hct 27.2 L (30.3-42.9) % MCV 77 L (79-97) fl MCH 25 L (28-32) pg Seg Neuts % (Manual) 82.0 H (40.0-70.0) % Lymphocytes % (Manual) 9.0 L (13.4-35.0) % Monocytes % (Manual) (0.0-7.3) % Nucleated RBC % 1.0 H (0.0-0.9) % Seg Neutrophils # Man 8.7 H (1.8-7.7) K/mm3 Lymphocytes # (Manual) 1.0 L (1.2-5.4) K/mm3 Monocytes # (Manual) (0.0-0.8) K/mm3 Glucose 109 H (65-100) mg/dL POC Glucose 212 H (70-105) mg/dL 02/07/20 Range/Units 07:30 RBC (3.65-5.03) M/mm3 Hgb (10.1-14.3) gm/dl Hct (30.3-42.9) % MCV (79-97) fl MCH (28-32) pg Seg Neuts % (Manual) (40.0-70.0) % Lymphocytes % (Manual) (13.4-35.0) % Monocytes % (Manual) (0.0-7.3) % Nucleated RBC % (0.0-0.9) % Seg Neutrophils # Man (1.8-7.7) K/mm3 Lymphocytes # (Manual) (1.2-5.4) K/mm3 Monocytes # (Manual) (0.0-0.8) K/mm3 Glucose (65-100) mg/dL POC Glucose 151 H (70-105) mg/dL
[2020-02-07] MEDS: cefTRIAXone/NS 2 GM/100 ML 2 GM/100 ML BAG IV SCH (10:31)
[2020-02-07] MEDS: LOSARTAN 50 MG TAB PO SCH (10:31)
[2020-02-07] MEDS: FAMOTIDINE 20 MG TAB PO SCH ×2 (10:31→21:22)
[2020-02-07] MEDS: HEPARIN 5,000 UNIT/1 ML VIAL SUB-Q SCH ×2 (10:34→21:23)
--- NOTE | 2020-02-07 10:45 | Event Note ---
Date: 02/07/20 Patient known to me as I saw her for DKA and sepsis with shock likely secondary to urinary source back on 02/01. Patient was on low O2 then but had been weaned off. Concern now is that she has an oxygen requirement and pneumonia. Had one fever, but none since. Not sure if patient has been ambulating. No complaints of chest pain. Reviewed CXR and not overly convinced of penumonia. Has been placed on abx therapy. Would suggest using IS and encourage ambulation. Patient needs walk test prior to discharge, however she has no funding, not sure how she would get oxygen if needed. Also, no current diagnosis to support oxygen therapy if needed as she has no history of lung disease. She is at risk for KRYSTYNA given her morbid obesity. No notes from respiratory as well so not sure who was been managing oxygen. She has had 2 recorded low sats both at night, likely while sleeping. At this point, nothing else to suggest other than Zhane ntive gerardo uses, OOB and ambulation.
--- NOTE | 2020-02-07 16:41 | XRay Report ---
CHEST 2 VIEWS INDICATION / CLINICAL INFORMATION: Bilateral PNA. COMPARISON: 02/03/2020. FINDINGS: SUPPORT DEVICES: None. HEART / MEDIASTINUM: Stable. LUNGS / PLEURA: Faint basilar opacity on the right. The left basilar opacity is not well-visualized o n this exam. No pneumothorax. ADDITIONAL FINDINGS: No significant additional findings. IMPRESSION: Stable to slightly improved examination. Signer Name: Emeka Talbot MD Signed: 02/07/2020 4:37 PM Workstation Name: [id number]
[2020-02-08 04:31] VITALS: BP 128/80
[2020-02-08 05:22] LABS: Hematocrit 28.6 % (30.3-42.9); Hemoglobin 9.3 gm/dl (10.1-14.3); Mean Corpuscular HGB Conc 32 % (30-34); Mean Corpuscular Volume 78 fl (79-97); Platelet Count 343 K/mm3 (140-440); Red Blood Count 3.65 M/mm3 (3.65-5.03); Red Cell Distribution Width 15.3 % (13.2-15.2)
[2020-02-08 05:24] LABS: Basophils % (Auto) 0.4 % (0.0-1.8); Eosinophils # (Auto) 0.1 K/mm3 (0.0-0.4); Eosinophils % (Auto) 1.2 % (0.0-4.3); Lymphocytes # (Auto) 1.9 K/mm3 (1.2-5.4); Lymphocytes % (Auto) 18.7 % (13.4-35.0); Monocytes # (Auto) 1.1 K/mm3 (0.0-0.8); Monocytes % (Auto) 10.3 % (0.0-7.3)
[2020-02-08 05:28] LABS: BUN/Creatinine Ratio 9; Blood Urea Nitrogen 8 mg/dL (7-17); Calcium 8.6 mg/dL (8.4-10.2); Hemolysis Index 74
[2020-02-08 06:11] LABS: Basophils % (Manual) 0 % (0.0-1.8); Total Cells Counted 100
[2020-02-08 06:12] LABS: Hypochromasia 1+; Platelet Estimate Consistent w Auto; Target Cells Few
--- NOTE | 2020-02-08 09:00 | Discharge Summary ---
Providers - Providers Date of Admission: 02/01/20 04:28 Date of discharge: 02/08/20 Attending physician: LAWANDA AC 02/01/20 06:46 Consult to Physician [CONS] Routine Comment: Consulting Provider: DIMITRIS ALONSO Physician Instructions: Reason For Exam: Septic shock 02/02/20 09:22 Consult to Dietitian/Nutrition [CONS] Routine Physician Instructions: Reason For Exam: Diabetic education Reason for Consult: Diet education 02/05/20 12:19 Consult to PICC Line RN [CONS] Routine Reason For Exam: midline if poissible Type Line:: Midline Primary care physician: BLANKER OPERATOR Hospitalization Reason for admission: sepsis Condition: Fair Hospital course: The patient is a 34-year-old female admitted to the hospital with nausea, vomiting and diarrhea of 1 day duration. She also had some chills. Upon presentation in the emergency room, she was noted to be hypotensive with a low- grade fever. UA showed significant pyuria. The patient was admitted with diagnosis of septic shock, acute hypoxic respiratory failure, pneumonia, UTI, uncontrolled diabetes mellitus type 2, acute kidney injury and morbid obesity. Infectious diseases was consulted for septic shock. CT chest, abdomen and pelvis did not reveal any significant infectious source. The patient initially required pressors which were later weaned off. The patient was started on IV antibiotics managed by infectious disease. Urine culture revealed E. coli which was pansensitive. Patient was later transferred to the floor but still had episodes of hypoxia with saturations dropping at night. Echocardiogram was obtained for further evaluation which revealed left ventricular systolic function that is normal with a EF of 60 to 65%. Mild concentric left ventricular hypertrophy. Right ventricular systolic pressure is 31 mmHg (mild pulmonary hypertension). Pulmonary reevaluated the patient for the hypoxia and felt that this was likely related to KRYSTYNA and resolving pneumonia. Pulmonary had no further suggestions other than incentive spirometry, OOB and ambulation. ID and pulmonary felt the patient could discharge and ID recommended Levaquin 750 mg p.o. daily for total of 7 days until 02/08. Dedicated discharge time 35 minutes Disposition: [id number] TO HOME OR SELFCARE Time spent for discharge: 35 Core Measure Documentation - Palliative Care Palliative Care/ Comfort Measures: Not Applicable - Core Measures Any of the following diagnoses?: none Exam - Constitutional Vitals: Temp Pulse Resp BP Pulse Ox 97.9 F 92 H 20 128/80 95 02/08/20 04:28 02/08/20 04:28 02/07/20 22:12 02/08/20 04:28 02/08/20 04:28 General appearance: Present: no acute distress, well-nourished - EENT Eyes: Present: PERRL ENT: hearing intact, clear oral mucosa - Neck Neck: Present: supple, normal ROM - Respiratory Respiratory effort: normal Respiratory: bilateral: CTA - Cardiovascular Heart Sounds: Present: S1 & S2. Absent: rub, click - Extremities Extremities: pulses symmetrical, No edema Peripheral Pulses: within normal limits - Abdominal General gastrointestinal: Present: soft, non-tender, non-distended, normal bowel sounds Female genitourinary: Present: normal - Integumentary Integumentary: Present: clear, warm, dry - Musculoskeletal Musculoskeletal: gait normal, strength equal bilaterally - Psychiatric Psychiatric: appropriate mood/affect, intact judgment & insight - Neurologic Neurologic: CNII-XII intact, moves all extremities Plan Activity: advance as tolerated Weight Bearing Status: Weight Bear as Tolerated Diet: diabetic Special Instructions: other (Needs OP sleep study) Follow up with: PRIMARY CARE, [Primary Care Provider] - 3-5 Days BRIDGET TRACY MD [Staff Physician] - 7 Days LORI OWUSU MD [Staff Physician] - 7 Days Prescriptions: Ciprofloxacin HCl [Ciprofloxacin TAB] 500 mg PO Q12HR #20 tab Losartan [Cozaar] 50 mg PO QDAY #30 tablet glyBURIDE [Glyburide] 7.5 mg PO BID #60 levoFLOXacin [Levaquin TAB] 750 mg PO Q24HR #7 tablet Insulin NPH/Regular [NovoLIN 70/30] 35 unit SUB-Q BIDDIAB 30 Days units Promethazine [Phenergan] 25 mg PO Q6HR PRN #20 tab PRN Reason: Nausea Promethazine [Phenergan] 25 mg MA Q6HR PRN #5 supp.rect PRN Reason: Vomiting
[2020-02-08] MEDS: INSULIN LISPRO 100 UNIT/ML VIAL 3 mL SUB-Q SCH (09:04)
[2020-02-08] MEDS ORDERED: levoFLOXacin 750 MG TAB PO SCH (10:00)
[2020-02-08] MEDS: INSULIN NPH/REGULAR 70/30 INJ SUB-Q SCH (10:01)
[2020-02-08] MEDS: FAMOTIDINE 20 MG TAB PO SCH (10:02)
[2020-02-08] MEDS: LOSARTAN 50 MG TAB PO SCH (10:02)
[2020-02-08] MEDS: HEPARIN 5,000 UNIT/1 ML VIAL SUB-Q SCH (10:02)
== END 2020-02-08 12:01 | disposition home or self-care (01) | DRG 871 ==
LOC: ED 14:19 → OBSVTOIN 02-01 04:28 → CC1 02-01 04:28 → 3A 02-02 12:08
PROVIDERS: ADMIT Internal Medicine; ATTEND Hospitalist
PROC: 05HB33Z Insertion of Infusion Device into Right Basilic Vein, Percutaneous Approach (ICD-10-PCS; principal; 2020-02-05)
DX: A41.9 Sepsis, unspecified organism (principal); R65.21 Severe sepsis with septic shock; J96.01 Acute respiratory failure with hypoxia; J18.9 Pneumonia, unspecified organism; N12 Tubulo-interstitial nephritis, not specified as acute or chronic; N39.0 Urinary tract infection, site not specified; N17.9 Acute kidney failure, unspecified; E87.1 Hypo-osmolality and hyponatremia; E46 Unspecified protein-calorie malnutrition; Z68.44 Body mass index [BMI] 60.0-69.9, adult; E11.9 Type 2 diabetes mellitus without complications; E66.01 Morbid (severe) obesity due to excess calories; B96.20 Unspecified Escherichia coli [E. coli] as the cause of diseases classified elsewhere; G47.33 Obstructive sleep apnea (adult) (pediatric); I27.20 Pulmonary hypertension, unspecified; G89.29 Other chronic pain; Z79.899 Other long term (current) drug therapy
CPT/HCPCS: 36415; 71045; 71046; 71250; 74176; 80048; 80053; 81001; 82140; 82728; 82805; 82962; 83036; 83615; 84145; 84703; 85007; 85025; 85379; 86140; 87040; 87076; 87086; 87186; 93005; 93306; 96372; G0378; J0456; J0692; J0696; J1644; J1815; J2001; J2405; J2543; J3370; J7030; J7040; J7050; J7120; U0003